=== PATIENT | female | born 1950 | race Caucasian/White ===

== ENCOUNTER 2020-03-07 00:21 | Outpatient (CLI) | payer MEDICARE, SELFPAY ==
--- NOTE | 2020-03-07 07:30 | DI.MAMMO_ITS ---
EXAM: MAMMO SCREENING CLINICAL HISTORY: screening,Z12.39 TECHNIQUE: Mammograms were interpreted according to the usual protocol including computer analysis w [employer] CAD system, tomosynthesis and C-view imaging. COMPARISON: 2010 through 2017 FINDINGS: The breasts are composed of scattered fibroglandular densities, Breast Density category B. No suspicious masses or suspicious microcalcifications are seen. No skin thickening or abnormal axillary lymph nodes are seen. There has been no significant change from prior exams. IMPRESSION: BI-RADS Category 1, yearly screening mammography is recommended. Breast Density Category B, scattered fibroglandular densities.
== END 2020-03-07 00:41 ==
PROVIDERS: PCP Family Medicine; Visit Provider Family Medicine
DX: Z12.31 Encounter for screening mammogram for malignant neoplasm of breast (principal)
CPT/HCPCS: 77063; 77067

== ENCOUNTER 2020-06-10 14:00 | Emergency (ER) | payer MEDICARE, SELFPAY ==
--- NOTE | 2020-06-10 14:02 | W.ED.GENAD ---
Discharge Plan Disposition Patient Disposition: HOME Condition: Good Discharge Details Clinical Impression: Closed fibular fracture Primary Care Provider: Deepti Calderon ED Provider: Rhianna Frank Home Meds and New Rx's Prescriptions: Continued betamethasone, augmented 0.05 % cream 1 applic Topical BID PRN (Reason: rash) Qty: 50 RF: 3 fluticasone propionate 50 mcg/actuation spray,suspension 2 spray NS BID Qty: 3 RF: 5 Shingrix Adjuvant Component-PF Suspension 1 ml IM ONCE Qty: 0.5 RF: 1 naproxen sodium 220 MG tablet 1 tab PO DAILY PRNRF: 0 triamcinolone acetonide 80 GM ointment 5 gm Topical BID PRNQty: 80 RF: 2 albuterol sulfate [ProAir HFA] 8.5 GM HFA aerosol inhaler 1 - 2 puff Inhalation Q4H PRN Qty: 3 RF: 12 gabapentin 300 mg capsule 300 mg PO TID MDD 3 PRN (Reason: neuropathy) Qty: 270 RF: 6 lisinopril-hydrochlorothiazide 20-12.5 mg tablet 1 tab PO DAILY Qty: 90 RF: 4 metoprolol succinate 100 mg tablet extended release 24 hr 200 mg PO DAILY Qty: 180 RF: 4 Discharge Instructions Instructions: Leg Fracture (ED) Additional Instructions: Encourage rest, ice, elevation. Tylenol and/or ibuprofen as needed for discomfort. Please continue with boot until evaluated by orthopedics. Please use crutches to help with ambulation but you may bear weight on the affected extremity. If you develop any new or worsening symptoms please seek care urgently once again. Otherwise, please call orthopedics on Friday to schedule follow-up appointment. Please follow up with your primary care regarding your elevated blood pressure. Please return if headache, shortness of breath, chest pain or other new/worsening symptoms. Referrals: Deepti Calderon MD, [place] [Primary Care Provider] - Pualo Kumar MD [ [facility] STAFF PHYSICIAN] - Medical Decision Making Patient is a pleasant 70-year-old female presenting today with chief complaint of right ankle pain arrival she was working in her garden when she suffered a rotational injury to the right ankle. Indicates the lateral malleolus is area of discomfort. Did not actually fall. No other injury the time of the incident. On exam, patient is resting comfortably. She did have difficulty ambulating from the wheelchair to the stretcher. She has notable swelling over the lateral malleolus which is the same area as discomfort. No pain of the proximal fifth metatarsal. No pain of the proximal fibula. Sensation is intact. Normal capillary refill, 2+ distal pulses. Will obtain x-rays. Patient declines analgesics Reviewed XR, patient has distal fibular fracture. Will fit with boot and have her ambulate wth crutches, weight bearing as tolerated. Encouraged RICE. She will call ortho Friday to schedule f/u appointment. Return precautions discussed. All of her quesitons and concerns were addressed, she is in agreement with this plan. FINDINGS: Bones/joints: There is moderate ankle joint effusion. There is plantar spur. There are enthesopathic changes at the site of insertion of Achilles tendon. There is a horizontal fracture of lateral malleolus below level of ankle mortise joint. Soft tissues: There is marked soft tissue swelling a over lateral malleolus. IMPRESSION: Acute horizontal fracture of tip of lateral malleolus of fibula. There is marked soft tissue swelling over lateral malleolus with associated ankle joint effusion. HPI General Mode of arrival: wheelchair. Date/Time Provider Initiated Documentation: 06/10/20 14:02. Limitations to Documentation: no limitations. Information obtained by: patient and RN notes reviewed. History of Present Illness 70 year old F presents to the emergency department with the chief complaint of right ankle pain, described as mild, with intensity rated at 2 (spikes to an 8 when weight bearing). Quality is described as aching, and is localized to the right and lower extremity. Patient reports no radiation. Patient started experiencing this minute(s) and it has been constant. Immobilization improves symptom(s), Movement worsens symptoms . Patient notes no other symptoms.. Patient did receive the following treatments prior to arrival, none Related Data Home Medications Medication Instructions Recorded Confirmed naproxen sodium 1 tab PO DAILY PRN 12/17/12 06/10/20 triamcinolone acetonide 5 gm TOPICAL BID PRN #80 ml 01/20/17 06/10/20 albuterol sulfate [ProAir HFA] 1 - 2 puff INHALATION Q4H PRN #3 02/12/18 06/10/20 inhaler betamethasone, augmented 0.05 % 1 applic TOPICAL BID PRN #50 gm 07/13/18 06/10/20 topical cream gabapentin 300 mg capsule 300 mg PO TID PRN #270 tab-cap [facility] 05/04/19 06/10/20 3 adjuvant AS01B (PF)vial 1 of 2 1 ml IM ONCE #0.5 ml 11/09/19 06/10/20 fluticasone propionate 50 2 spray NS BID #3 bottle 11/09/19 06/10/20 mcg/actuation nasal spray,suspension lisinopril 20 1 tab PO DAILY #90 tab 03/31/20 06/10/20 mg-hydrochlorothiazide 12.5 mg tablet metoprolol succinate 100 mg 200 mg PO DAILY #180 tab 03/31/20 06/10/20 tablet,extended release 24 hr Previous Rx's Medication Instructions Recorded albuterol sulfate [ProAir HFA] 1 - 2 puff INHALATION Q4H PRN #3 02/12/18 inhaler betamethasone, augmented 0.05 % 1 applic TOPICAL BID PRN #50 gm 07/13/18 topical cream gabapentin 300 mg capsule 300 mg PO TID PRN #270 tab-cap [facility] 05/04/19 3 adjuvant AS01B (PF)vial 1 of 2 1 ml IM ONCE #0.5 ml 11/09/19 fluticasone propionate 50 2 spray NS BID #3 bottle 11/09/19 mcg/actuation nasal spray,suspension lisinopril 20 1 tab PO DAILY #90 tab 03/31/20 mg-hydrochlorothiazide 12.5 mg tablet metoprolol succinate 100 mg 200 mg PO DAILY #180 tab 03/31/20 tablet,extended release 24 hr Allergies Allergy/AdvReac Type Severity Reaction Status Date / Time No Known Drug Allergies Allergy Verified 06/10/20 14:20 Review of Systems Constitutional Constitutional: Reports as per HPI, Denies chills, Denies fever(s), Denies headache(s) and Denies weakness ENT Ears, Nose, Mouth, and Throat: Denies headache(s) Cardiovascular Cardiovascular: Reports as per HPI Respiratory Respiratory: Reports as per HPI and Denies cough Musculoskeletal Musculoskeletal: Reports as per HPI and Denies tingling Integumentary/Breasts Skin/Breast: Reports as per HPI, Denies rash and Denies wounds Neurologic Neurologic: Reports as per HPI, Denies headache(s), Denies tingling, Denies paresthesias and Denies weakness PFS Medical History Carpal tunnel syndrome positive EMG Cervical spondylosis (07/20/09) Chronic low back pain with bilateral sciatica L5 discectomy Diverticulosis (10/13/14) Essential hypertension (12/03/13) Hyperlipidemia Hypertrophy of breast S/P breast reduction Non-alcoholic fatty liver disease Polyp of colon 08/21/04 Tubular adenoma in rectum; 04/30 Colonoscopy: Diverticulosis, BUT NO POLYPS Tubular adenoma of colon (10/13/14) Surgical History H/O bilateral breast reduction surgery Hx of lumbar discectomy L5 Open Carpal Tunnel release (~2006) PROCEDURES EXC/DEST INTVRT DISC NOS; L5 Reduction mammoplasty S/P carpal tunnel release 09/22/06 Family History (Updated 11/10/19 @ 08:56 by Keny Rodriguez) Mother , CVA at age 83. Essential hypertension Hyperlipidemia Stroke Asthma Father , age 84 Essential hypertension Heart disease Hyperlipidemia Sister Essential hypertension Hyperlipidemia Asthma Maternal Grandfather No problems noted. Paternal Grandfather Heart disease Myocardial infarction Maternal Grandmother Lung cancer Paternal Grandmother Diabetes LATE ONSET Essential hypertension Heart disease Ovarian cancer STRONG FAMILY HISTORY Essential hypertension Arthritis Sister Essential hypertension Depression Hyperlipidemia Son No problems noted. Son No problems noted. Social History Smoking/Tobacco Use Status: Former Tobacco Use Second Hand Exposure: Yes Alcohol Intake: current Alcohol Intake frequency: 0-2 drinks per day Alcohol type: hard liquor Drug use: Occasionally Substance use type: marijuana Caregiver/Support person: No Household members: family Housing: house Communication Needs: None Do you need help understanding health information?: Rarely Pets and animals: Yes Pets and animals: cat(s) and dog(s) Sexually active: No Do you think of yourself as: Asexual Current gender identity: female What is your relationship status?: living with partner How often do you talk on the phone with friends or family?: three or more times per week How often do you get together with friends or relatives?: once per week How often do you attend congregational or taoist services?: 1-3 times per year Do you belong to any clubs or organized social groups?: no Panel score (0-1 are the most socially isolated patients): 2 What type of physical activity do you participate in: decline to answer Duration: decline to answer Frequency: decline to answer Elaina/Shinto: None Special elaina needs: No Seatbelt use: always 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 Exam Const General: cooperative, healthy appearing, comfortable, no acute distress, well developed and well groomed Nutritional Appearance: average body habitus and well nourished Orientation: alert and awake Resp Effort & Inspection: normal respiratory effort, able to speak in complete sentences and no respiratory distress Cardio Rate: regular rate Rhythm: regular rhythm Skin General skin exam: no rashes or lesions noted Lesions: no lesions Rashes: no rashes Trauma: no lacerations or abrasions Neuro General: patient alert and patient awake Cognition: normal cognition Speech: speech normal Gait: antalgic Motor: muscle tone normal throughout Sensory Exam: no sensory deficits noted Extrem Right lower extremity: normal capillary refill, knee Details: normal to inspection (no pain over proximal fibula), lower leg Details: normal to inspection and no edema; no tenderness, no localized swelling, no palpable cords, no crepitus and no deformity, ankle Details: tenderness Location: of the lateral malleolus, swelling Details: laterally, no edema and abnormal ROM; no unusual warmth, no abrasions, no lacerations, no ecchymosis, no crepitus and achilles tendon exam normal and foot Details: normal capillary refill, normal to inspection, toes with normal ROM, no edema, vascular exam Details: dorsalis pedis pulse present and normal capillary refill and motor-sensory exam Details: light-touch normal; no tenderness (no pain over proximal 5th metatarsal), no unusual warmth, no ecchymosis and no crepitus; abnormal to inspection (swelling lateral right ankle) Psych Appearance: grossly normal and well kempt Mental Status: mental status grossly normal Speech and Movement: speech and movement normal
[2020-06-10 14:18] VITALS: BP 214/74; PULSE 72; RESP 16; TEMP 36.6; O2SAT 96
--- NOTE | 2020-06-10 14:26 | DI.RAD_ITS ---
EXAM: XR ANKLE RT COMPLETE CLINICAL HISTORY: internal rotationl injury, pain over lateral mal. TECHNIQUE: 2D digital imaging was performed. COMPARISON: No exams were available for comparison FINDINGS: BONES: There is a nondisplaced transverse fracture through the distal aspect of the lateral malleolus . No bony destructive lesion is seen. There is a large enthesophyte at the Achilles insertion site. There is a large calcaneal spur. JOINTS: The ankle mortise is normally aligned. SOFT TISSUE: There is marked soft tissue swelling about the ankle particularly laterally. IMPRESSION: Nondisplaced lateral malleolar fracture. Marked soft tissue swelling about the ankle laterally. DATA REPOSITORY: RADIATION DOSE DELIVERED:
--- NOTE | 2020-06-10 14:41 | DI.VRAD_ITS ---
PROCEDURE INFORMATION: Exam: XR Right Ankle Exam date and time: 06/10/2020 2:21 PM Age: 70 years old Clinical indication: Other: Internal rotation injury, pain over lateral mal TECHNIQUE: Imaging protocol: XR Right ankle. Views: 3 or more views. COMPARISON: No relevant prior studies available. FINDINGS: Bones/joints: There is moderate ankle joint effusion. There is plantar spur. There are enthesopathic changes at the site of insertion of Achilles tendon. There is a horizontal fracture of lateral malleolus below level of ankle mortise joint. Soft tissues: There is marked soft tissue swelling a over lateral malleolus. IMPRESSION: Acute horizontal fracture of tip of lateral malleolus of fibula. There is marked soft tissue swelling over lateral malleolus with associated ankle joint effusion. Dictated and Authenticated by: Miguel Angel Fung MD. Ordering:JIMI Moctezuma MD
[2020-06-10 14:42] VITALS: BP 200/70
== END 2020-06-10 14:47 | disposition home or self-care (01) ==
PROVIDERS: Emergency Provider Physician Assistant; PCP Family Medicine
DX: S82.61XA Displaced fracture of lateral malleolus of right fibula, initial encounter for closed fracture (principal); X50.9XXA Other and unspecified overexertion or strenuous movements or postures, initial encounter
CPT/HCPCS: 27786; 73610; E0114; L4361

== ENCOUNTER 2020-06-26 09:30 | Outpatient (CLI) | payer MEDICARE, SELFPAY | END 2020-06-26 09:50 | PROVIDERS: PCP Family Medicine; Visit Provider Physician Assistant Surgical | DX: S82.401A Unspecified fracture of shaft of right fibula, initial encounter for closed fracture (principal); X50.9XXA Other and unspecified overexertion or strenuous movements or postures, initial encounter; I10 Essential (primary) hypertension | CPT/HCPCS: 99214 ==

== ENCOUNTER 2020-11-01 22:48 | Outpatient (REF) | payer MEDICARE, SELFPAY | END 2020-11-01 22:49 | disposition home or self-care (01) | LOC: NCHCN 22:48 | PROVIDERS: PCP Family Medicine; Visit Provider Nurse Practitioner Family | DX: N39.0 Urinary tract infection, site not specified (principal) | CPT/HCPCS: 87077; 87086; 87186 ==

== ENCOUNTER 2021-02-13 02:19 | Outpatient (CLI) | payer MEDICARE, SELFPAY ==
--- NOTE | 2021-02-13 14:52 | DI.RAD_ITS ---
Exam(s) XR CERVICAL SPINE COMP 4-5V EXAM: XR CERVICAL SPINE COMP 4-5V CLINICAL HISTORY: neck pain,M47.812,CERVICAL SPONDYLOSIS. TECHNIQUE: 2D digital imaging was performed. COMPARISON: No exams were available for comparison FINDINGS: There are degenerative changes at the anterior arch of C1 with the dens. The C2-3 and C3-4 disc spac es are well maintained. There are facet degenerative changes at these levels. There is mild narrowi ng of the C4-5 disc space. There are endplate osteophytes projecting mainly anteriorly. Similar fin dings are seen at C5-6. Moderate to severe disc space narrowing and endplate osteophyte formation is seen at C6-7. Facet degenerative changes are noted at these levels. Neural foraminal encroachment is seen on the left at C3-4 through C5-6. The alignment appears normal. The airway appears intact. IMPRESSION: Degenerative disc changes and facet degenerative changes causing left neural foraminal encroachment. DATA REPOSITORY: RADIATION DOSE DELIVERED:
== END 2021-02-13 02:39 ==
PROVIDERS: PCP Family Medicine; Visit Provider Family Medicine
DX: M54.2 Cervicalgia (principal); M47.812 Spondylosis without myelopathy or radiculopathy, cervical region; M50.321 Other cervical disc degeneration at C4-C5 level; M50.323 Other cervical disc degeneration at C6-C7 level
CPT/HCPCS: 72050

== ENCOUNTER 2021-09-24 09:53 | Outpatient (CLI) | payer MEDICARE, SELFPAY ==
--- NOTE | 2021-09-24 09:30 | DI.US_ITS ---
Exam(s) US LOWER EXTREMITY VENOUS RT EXAM: US LOWER EXTREMITY VENOUS RT CLINICAL HISTORY: new onset right leg pain /edema, M79.604, r/o DVT. TECHNIQUE: Lower extremity venous ultrasound performed using grayscale, color-flow, and spectral Do ppler analysis. COMPARISON: No exams were available for comparison FINDINGS: The common femoral, femoral and popliteal veins demonstrate thrombus throughout.The posterior tibial veins also show thrombus.. The proximal saphenous vein shows thrombus. No hematoma or Wick's cyst is seen. IMPRESSION: Extensive deep venous thrombosis from the common femoral vein through calf veins. DATA REPOSITORY:
== END 2021-09-24 10:13 ==
PROVIDERS: PCP Family Medicine; Visit Provider Family Medicine
DX: M79.604 Pain in right leg (principal); R60.0 Localized edema; I82.411 Acute embolism and thrombosis of right femoral vein
CPT/HCPCS: 93971

== ENCOUNTER 2021-09-25 01:16 | Outpatient (CLI) | payer MEDICARE, SELFPAY ==
--- NOTE | 2021-09-25 08:02 | DI.CT_ITS ---
Exam(s) CT CHEST PE CTA EXAM: CT CHEST PE CTA CLINICAL HISTORY: right dvt, recent chest pain on right,suspect pe,r07.9. TECHNIQUE: Imaging Protocol: Axial CT angiography was performed with multi-slice acquisition and mu lti-planar and/or 3D reconstructions. CONTRAST MATERIAL: Intravenous: Omnipaque 350 Contrast volume:75 mL COMPARISON: No exams were available for comparison FINDINGS: Tracheobronchial tree: Patent where visualized. Pulmonary parenchyma: There is a 1.5 x 1.3 cm nodule in the right lower lobe. There is pleural thick ening or peripheral infiltrate seen in the right lower lobe laterally. No architectural distortion. Pulmonary Arteries: There is a filling defect seen in a branch of the pulmonary artery in the right l ower lobe consistent with the embolus. (Series 5 images 285 through 333). Mediastinum and Radha: No dominant adenopathy or fluid collection. The esophagus is unremarkable. Visualized thyroid gland: There is a 1.7 x 1.5 cm nodule in the inferior aspect of the left thyroid g land. Nonemergent thyroid ultrasound is recommended for further evaluation. Pleura: Please see above. No pleural effusion is seen. There is no pneumothorax. Heart: The heart is not dilated. No coronary artery calcifications are seen. No pericardial effusion. Aorta: Thoracic aorta non-dilated. No evidence of dissection. Atherosclerosis. Upper abdomen: Unremarkable. Soft tissues: Unremarkable. Bones: Within normal limits for the patient's age. IMPRESSION: 1. Pulmonary embolus in a branch of the pulmonary artery to the right lower lobe. 2. Rounded opacity in the right lower lobe. Differential considerations include neoplasm, rounded at electasis or pneumonia or infarct. 3. Peripheral opacity in the lateral aspect of the right lower lobe. This may represent atelectasis or pneumonia. 4. 1.7 x 1.5 cm nodule in the left thyroid gland. Nonemergent thyroid ultrasound is recommended. RADIATION DOSE DELIVERED: 346.15mGy.cm Total DLP DATA REPOSITORY: All CT scans at this facility are submitted to the National Radiology Data Registry (NRDR) Dose Index Registry (DIR) with the [employer] (A[employer]). RADIATION OPTIMIZATION: All CT scans at this facility use at least one of these dose optimization te chniques: automated exposure control; mA and/or kV adjustment per patient size (includes targeted exa ms where dose is matched to clinical indication); or iterative reconstruction.
[2021-09-25 13:10] LABS: HCT 38.7 % (36.0-46.0); HGB 12.8 g/dL (11.2-15.7); MCH 33.7 pg (27.0-33.0); MCHC 33.1 % (32.0-36.0); MCV 101.8 fL (80-95); MPV 9.9 fL (8.0-11.0); Platelet Count 235 10^3/uL (130-400); RDW-SD 45.1 fL; WBC 9.06 10^3/uL (4.4-10.8)
[2021-09-25 13:28] LABS: ALT 24 U/L (14-59); AST 21 U/L (15-37); Albumin 3.7 g/dL (3.4-5.0); Alkaline Phosphatase 81 U/L (46-116); Anion Gap 8.3 mmol/L (3-11); BUN 32 mg/dL (7-18); Bilirubin, Total 0.5 mg/dL (0.2-1.0); CO2 28.7 mmol/L (21.0-32.0); CREATININE 1.2 mg/dL (0.55-1.02); Calcium 9.5 mg/dL (8.5-10.1); Chloride 101 mmol/L (98-107); Estimated GFR 44.16 (mL/min/1.73m2); Glucose 164 mg/dL (74-106); Potassium 4.1 mmol/L (3.5-5.1); Sodium 138 mmol/L (136-145); Total Protein 7.4 g/dL (6.4-8.2)
[2021-09-25] MEDS: Omnipaque 350 MG/ML 100 ML BTL IJ (13:59)
[2021-09-25 14:03] LABS: Calculated LDL 154 mg/dL (<100); Cholesterol 223 mg/dL (<200); HDL Cholesterol 38 mg/dL (40-60); Triglyceride 157 mg/dL (<150)
== END 2021-09-25 01:36 ==
PROVIDERS: PCP Family Medicine; Visit Provider Family Medicine
DX: I26.99 Other pulmonary embolism without acute cor pulmonale (principal); M79.604 Pain in right leg; I82.411 Acute embolism and thrombosis of right femoral vein; R07.9 Chest pain, unspecified; I10 Essential (primary) hypertension; E78.5 Hyperlipidemia, unspecified; J98.4 Other disorders of lung; E04.1 Nontoxic single thyroid nodule
CPT/HCPCS: 71275; 80053; 80061; 85027; 82565; J3490

== ENCOUNTER 2021-09-25 16:14 | Emergency (ER) | payer MEDICARE, SELFPAY ==
--- NOTE | 2021-09-25 16:15 | RT.EKG_ITS ---
APPROVED REPORT Exam: Resting ECG Reason for Exam: BLOOD CLOTS Patient Location: E HR:67 bpm ECG Measurements Heart Rate 67 AXIS PA 217 P 44 QRSd 77 QRS 44 QT 405 T 54 QTc 427 Conclusion Sinus rhythm...normal P axis, V-rate 60- 99 Borderline prolonged PA interval...PA >212, V-rate 50- 90 Nonspecific T abnormalities, anterior leads...T <-0.10mV, V2-V4 Physician: no stemi, inverted t waves in V1 and V2
[2021-09-25 16:22] VITALS: BP 144/84; PULSE 72; RESP 14; TEMP 36.6; O2SAT 100
--- NOTE | 2021-09-25 16:50 | W.ED.GENAD ---
Discharge Plan Disposition Patient Disposition: HOME Condition: Good Discharge Details Clinical Impression: Pulmonary embolism Primary Care Provider: Deepti Calderon ED Provider: Tera Ruiz Home Meds and New Rx's Prescriptions: Continued albuterol sulfate [ProAir HFA] 90 mcg/actuation HFA aerosol inhaler 1 - 2 puff Inhalation Q4H PRN Qty: 3 RF: 12 celecoxib 200 mg capsule 200 mg PO DAILY PRN (Reason: pain) Qty: 30 RF: 5 fluticasone propionate 50 mcg/actuation spray,suspension 2 spray NS BID Qty: 3 RF: 5 lisinopril-hydrochlorothiazide 20-25 mg tablet 1 tab PO DAILY Qty: 90 RF: 4 clobetasol 0.05 % ointment 1 applic topical DAILY Qty: 60 RF: 5 triamcinolone acetonide 0.1 % cream 1 applic topical BID Qty: 80 RF: 0 gabapentin 300 mg capsule 300 mg PO TID MDD 3 PRN (Reason: neuropathy) Qty: 270 RF: 6 metoprolol succinate 100 mg tablet extended release 24 hr 200 mg PO DAILY Qty: 180 RF: 4 Discharge Instructions Instructions: Rivaroxaban (By mouth), Pulmonary Embolism (ED) Additional Instructions: At this time your bedside echo shows a stable heart, no signs of severe heart strain. We have given you your first dose of Xarelto here, and 4 few pills to go home with. The prescription is to take 15 Mg (1 tab) every 12 hours. The prescription that you have at the pharmacy should be available tomorrow or the next day. Please fill this immediately. Please follow-up closely with Dr. Calderon at your scheduled appointment on . If you notice any worsening of your symptoms, or any new symptoms such as vomiting, diarrhea, fever, chills, shortness of breath, chest pain, numbness, weakness, or fainting , please return immediately to the emergency department for reevaluation. Please follow up with your primary care provider as soon as possible for reassessment and reevaluation. As always, it was a pleasure participating in your medical care today. Referrals: Deepti Calderon MD, [place] [Primary Care Provider] - Discharge Data Discharge Date/Time-TO BE ENTERED AT DEPARTURE: 09/25/21 17:06 Medical Decision Making This is a 62-year-old female with a past medical history of COVID-19 after vaccination, coronary artery disease with 3 stents, diabetes, asthma/COPD, who presents today for weakness palpitations mild shortness of breath. Patient states that about 30 minutes prior to arrival she developed the symptoms, she denies any new cough or tearing or ripping chest pain. She denies any heavy pressure in her chest. She states that these current symptoms feel different than her previous angina. No other complaints at this time. No other modifying factors. She denies history of blood clot. Physical exam is notably unremarkable, patient has no hypoxemia, tachypnea, or respiratory distress. No peripheral edema. Bedside ultrasound was performed and shows no evidence of significant right heart strain. EKG did demonstrate inverted T waves in V1 and V2, however was otherwise unremarkable. CT scan written review of scan shows no evidence of significant clot burden. Only a single strand the long clot is noted. At this time patient feels well. No indication for further evaluation. We are able to get the patient Xarelto here, we gave her a pulmonary embolism dose of 15 mg, as well as 4 additional pills to go home with while her prescription is being filled. The pharmacy does state that they will have the Xarelto sometime tomorrow. We contacted discussed the case with the patient's provider Dr. Calderon, and she agrees with this plan. She will be following up closely with the patient for continued reassessment and potential outpatient reevaluation for echo. Discussed red flags which to return. At this time patient shows no signs of heart failure requiring inpatient management. I have extensively reviewed the treatment plan and discharge instructions with the patient. I have addressed all patient concerns at this time. The patient was made aware of what symptoms to monitor for that would warrant a return to the emergency department. Discussed the plan with the patient, they demonstrate verbal understanding and agreement with our assessment and plan at this time. The documentation in this chart was dictated using [employer] dictation software. Please excuse any dictation errors. HPI General Date/Time Provider Initiated Documentation: 09/25/21 16:26. HPI Narrative: This is a very pleasant 71-year-old female who presents for medication management on an acute setting. Patient was recently diagnosed with a DVT and pulmonary embolism, these were notable and done on outpatient studies, and her primary care provider has aggressively been trying to get the patient appropriate anticoagulation therapy on an outpatient basis. Unfortunately none of the pharmacies have Eliquis that the patient is able to afford, additionally none of the pharmacies actively today had any Xarelto. Out of concern for worsening clots, and potential propagation is recommended that the patient come to the ED for evaluation as well as expediting anticoagulation administration. Patient has no current complaint of chest pain shortness of breath or other abnormality. Related Data Home Medications Medication Instructions Recorded Confirmed fluticasone propionate 50 2 spray NS BID #3 bottle 11/09/19 09/25/21 mcg/actuation nasal spray,suspension triamcinolone acetonide 0.1 % 1 applic TOPICAL BID #80 g 06/19/20 09/25/21 topical cream gabapentin 300 mg capsule 300 mg PO TID PRN #270 tab-cap MDD 08/24/20 09/25/21 3 clobetasol 0.05 % topical ointment 1 applic TOPICAL DAILY #60 g 11/13/20 09/25/21 lisinopril 20 1 tab PO DAILY #90 tab 11/13/20 09/25/21 mg-hydrochlorothiazide 25 mg tablet metoprolol succinate 100 mg 200 mg PO DAILY #180 tab 05/17/21 09/25/21 tablet,extended release 24 hr albuterol sulfate 90 mcg/actuation 1 - 2 puff INHALATION Q4H PRN #3 09/24/21 09/25/21 aerosol inhaler inhaler celecoxib 200 mg capsule 200 mg PO DAILY PRN #30 cap 09/24/21 09/25/21 Previous Rx's Medication Instructions Recorded fluticasone propionate 50 2 spray NS BID #3 bottle 11/09/19 mcg/actuation nasal spray,suspension triamcinolone acetonide 0.1 % 1 applic TOPICAL BID #80 g 06/19/20 topical cream gabapentin 300 mg capsule 300 mg PO TID PRN #270 tab-cap MDD 08/24/20 3 clobetasol 0.05 % topical ointment 1 applic TOPICAL DAILY #60 g 11/13/20 lisinopril 20 1 tab PO DAILY #90 tab 11/13/20 mg-hydrochlorothiazide 25 mg tablet metoprolol succinate 100 mg 200 mg PO DAILY #180 tab 05/17/21 tablet,extended release 24 hr albuterol sulfate 90 mcg/actuation 1 - 2 puff INHALATION Q4H PRN #3 09/24/21 aerosol inhaler inhaler celecoxib 200 mg capsule 200 mg PO DAILY PRN #30 cap 09/24/21 Allergies Allergy/AdvReac Type Severity Reaction Status Date / Time No Known Drug Allergies Allergy Verified 09/25/21 16:26 General Stated Complaint: Vascular JEFF: 4 Review of Systems All systems reviewed & are unremarkable except as noted in HPI and below PFSH All Active Problems DVT (deep venous thrombosis) (Chronic) 09/2021, right on Eliquis, at least 6 month course Pulmonary embolism (Chronic) 08/2021- assoc with right leg DVT, on Eliquis-at least 6 month course DNR (do not resuscitate) (Acute) Physician orders for life-sustaining treatment (POLST) form indicates patient wish for pv-[id number] status (Acute) Vaginal atrophy (Acute) Tubular adenoma of colon (Chronic 10/13/14) Non-alcoholic fatty liver disease (Chronic) Joint pain (Chronic 06/16/12) Hyperlipidemia (Chronic) Essential hypertension (Chronic 12/03/13) Diverticulosis (Chronic 10/13/14) 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 Essential hypertension Hyperlipidemia Stroke Asthma Father , age 84 Essential hypertension Heart disease Hyperlipidemia Sister Essential hypertension Hyperlipidemia Asthma Maternal Grandfather No problems noted. Paternal Grandfather Heart disease Myocardial infarction Maternal Grandmother Lung cancer Paternal Grandmother Diabetes LATE ONSET Essential hypertension Heart disease Ovarian cancer STRONG FAMILY HISTORY Essential hypertension Arthritis Sister Essential hypertension Depression Hyperlipidemia Son No problems noted. Son No problems noted. Social History Smoking/Tobacco Use Status: Former Tobacco Use Tobacco: How many years used: 25 Second Hand Exposure: Yes Smoking risk assessment performed?: Yes Alcohol Intake: current Alcohol Intake frequency: 0-2 drinks per day Alcohol type: hard liquor Drug use: Occasionally Substance use type: marijuana Caregiver/Support person: No Household members: family Housing: house Communication Needs: None Do you need help understanding health information?: Rarely Pets and animals: Yes Pets and animals: cat(s) and dog(s) Sexually active: No Do you think of yourself as: Asexual Current gender identity: female What is your relationship status?: living with partner How often do you talk on the phone with friends or family?: three or more times per week How often do you get together with friends or relatives?: once per week How often do you attend christian or congregational services?: 1-3 times per year Do you belong to any clubs or organized social groups?: no Panel score (0-1 are the most socially isolated patients): 2 What type of physical activity do you participate in: decline to answer Duration: decline to answer Frequency: decline to answer Elaina/Scientologist: None Special elaina needs: No Seatbelt use: always Drive intox or ride w/intox 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 3.ENT: Atraumatic external nose and ears. Moist MM. Neck: Symmetric, trachea midline, No thyromegaly. 4.CVS: +S1/S2, No murmurs or gallops. Peripheral pulses 2+ and equal in all extremities. Brisk capillary refill in all extremities. 5.RESP: Unlabored respiratory effort. Clear to auscultation bilaterally. No wheezes rales or rhonchi 6.GI: Soft, Nontender/Nondistended, No hepatosplenomegaly. No guarding or rebound. 7.MSK: Normocephalic/Atraumatic, Extremities w/o deformity or ttp No cyanosis or clubbing, Normal movement of all extremities 8.Skin: Warm, Dry. No rashes or lesions. 9.Neuro: kayak maker II-XII grossly intact. Sensation grossly intact, no focal neurologic deficits. 10.Psych: (AAO) x3. Appropriate mood and affect Course Vital Signs Vital signs: Vital Signs Temperature 36.6 C 09/25/21 16:22 Pulse 72 09/25/21 16:22 Respiratory Rate 14 09/25/21 16:22 Blood Pressure 144/84 H 09/25/21 16:22 Pulse Oximetry 100 09/25/21 16:22 Temperature 36.6 C 09/25/21 16:22 Temperature Source Temporal Artery Scan 09/25/21 16:22 Pulse 72 09/25/21 16:22 Respiratory Rate 14 09/25/21 16:22 Respiratory Effort Non-Labored 09/25/21 16:28 Respiratory Depth Normal 09/25/21 16:28 Respiratory Pattern Normal 09/25/21 16:28 Blood Pressure 144/84 H 09/25/21 16:22 Blood Pressure Position Sitting 09/25/21 16:22 Pulse Oximetry 100 09/25/21 16:22 Oxygen Delivery Method Room Air 09/25/21 16:22 Oxygen Flow Rate 0 09/25/21 16:22 Pain Level 6 09/25/21 16:22 Comment 09/25/21 16:22 PAWSS Have you Been Recently Intoxicated or Drunk Within the Last 30 days?: No Have you Ever Experienced Previous Episodes of Alcohol Withdrawal?: No Have you ever Experienced Withdrawal Seizures?: No Have you ever Experienced Delirium Tremens(DT)s?: No Have you ever undergone Alcohol Rehabilitation Treatment (i.e, inpt ot outpatient treatment programs)?: No Have you ever Experienced Blackouts?: No Have you ever Combined Alcohol with other Downers within the last 90 days?: No Have you ever Combined Alcohol with any other Substance of Abuse during the last 90 days?: No Positive Blood Alcohol level on Presentation? [PCS.BAL]: No Evidence of Increased Autonomic Activity (i.e. HR>120, tremor, sweating, agitation, nausea)?: No Result: 0
[2021-09-25 16:57] VITALS: BP 106/64; PULSE 69; RESP 15; TEMP 36.9; O2SAT 97
[2021-09-25] MEDS: Rivaroxaban 15 MG TABLET PO (17:01)
[2021-09-25] MEDS: Rivaroxaban 15 MG TABLET 60 MG PO (17:01)
[2021-09-25 17:08] VITALS: BP 106/64; PULSE 69; RESP 15; TEMP 36.9; O2SAT 97
== END 2021-09-25 17:06 | disposition home or self-care (01) ==
LOC: ER 16:53
PROVIDERS: Emergency Provider Student in an Organized Health Care Education/Training Program; PCP Family Medicine
DX: I26.99 Other pulmonary embolism without acute cor pulmonale (principal); Z86.16 Personal history of COVID-19; R00.2 Palpitations
CPT/HCPCS: 71275; 80053; 80061; 85027; 93005; 99284; 93010; 99283; J3490

== ENCOUNTER 2021-09-27 13:35 | Outpatient (REF) | payer MEDICARE, SELFPAY ==
[2021-09-28 12:31] LABS: COVID-19 RT-PCR UVMMC Result Negative (Negative)
== END 2021-09-27 13:36 | disposition home or self-care (01) ==
LOC: LBN 13:35
PROVIDERS: PCP Family Medicine; Visit Provider Family Medicine
DX: Z20.822 Contact with and (suspected) exposure to COVID-19 (principal)
CPT/HCPCS: U0003; U0005

== ENCOUNTER → 2022-01-25 01:41 | Outpatient (CLI) | payer MEDICARE, SELFPAY ==
--- NOTE | 2022-01-25 06:45 | DI.CT_ITS ---
Exam(s) CT CHEST WO EXAM: CT CHEST WO CLINICAL HISTORY: f/u pulmonary nodule,R91.1. TECHNIQUE: Multi planar reconstructions were performed. CONTRAST MATERIAL: None COMPARISON: CT CT CHEST PE CTA from 09/25/2021 FINDINGS: CHEST: Noninfused chest CT scan was performed and compared to the prior contrast infused chest CT ang iography study of 09/25/2021. That study revealed a pulmonary embolus in the right lower lobe and a 1.5 x 1.3 centimeter nodule in the right lower lobe.. LUNGS: The previously described nodular infiltrate in the posterior basal segment of the right lower lobe has decreased in size and there has also been some decrease in size in pleural based infiltrate laterally in the anterior basal segment of the right lower lobe. There are no new focal right lung f indings. There are no significant focal left lung findings. There are no pleural effusions on eithe r side. No focal findings in the trachea and mainstem bronchi. No bronchiectasis. MEDIASTINUM: There is no obvious hilar nor mediastinal adenopathy. Visualized thyroid again reveals a nodule which occupies part of the left lobe and left side of the isthmus. No obvious axillary adeno maria c CARDIAC: Heart size is normal. There is no pericardial effusion.Caliber of the thoracic aorta is wit hin normal limits. VISUALIZED UPPER ABDOMEN: OSSEOUS: No significant osseous lesions.. IMPRESSION: 1. There has been improvement in the previously described right lower lobe findings. The previously described 1.5 x 1.3 cm nodule in the right lower lobe and pleural thickening in the peripheral aspect of right lower lobe both significantly decreased although not yet completely resolved. Nevertheless , fact that these have decreased in size imply that there are most probably not neoplastic. 2. There are no new focal pulmonary findings and there are no pleural effusions nor obvious intrathor acic adenopathy evident on this noninfused study. 3. The prior contrast infused CTA study revealed a pulmonary embolus in a branch of the right lower l obe pulmonary artery. This cannot be assessed on this noninfused study. Nevertheless, the previousl y described finding in the posterior basal segment of the right lower lobe has significantly improved and therefore if it was indeed an area of pulmonary infarction then it has improved. RADIATION DOSE DELIVERED: 484.11mGy.cm Total DLP DATA REPOSITORY: All CT scans at this facility are submitted to the National Radiology Data Registry (NRDR) Dose Index Registry (DIR) with the [employer] (ACR). RADIATION OPTIMIZATION: All CT scans at this facility use at least one of these dose optimization te chniques: automated exposure control; mA and/or kV adjustment per patient size (includes targeted exa ms where dose is matched to clinical indication); or iterative reconstruction.
--- NOTE | 2022-01-25 07:00 | DI.US_ITS ---
Exam(s) US THYROID EXAM: US THYROID CLINICAL HISTORY: thyroid nodule,E04.1. TECHNIQUE: Ultrasound thyroid performed using standard protocol. COMPARISON: US US LOWER EXTREMITY VENOUS RT from 09/24/[address] CHEST WO from 01/25/2022 FINDINGS: Both thyroid lobes exhibit normal size. In the right thyroid lobe there are few small benign colloid cysts but no significant nodules. In the left thyroid lobe there is a nodule which also involves the adjacent left side of the isthmus, this corresponding to what was incidentally seen on the recent chest CT scan. This nodule is described below. There are no other thyroid nodules evident and there is no adenopathy . LEFT THYROID LOBE NODULE: This nodule is at the junction of the inferior left lobe and isthmus. This nodule measures 2.1 cm wide by 1.4 cm AP by 1.8 cm craniocaudal. This nodule exhibits mixed solid-cystic composition-1 point Echogenicity of this nodule is isoechoic-1 point In the transverse plane this shape of this nodule is wider than taller-0 points Nodule margins are slightly lobulated-2 points This nodule appears to contain punctate echogenic foci-3 points TOTAL POINTS for this nodule=7..... Therefore TR 5 IMPRESSION: There is a 2.1 x 1.4 x 1.8 cm nodule which occupies part of the left thyroid lobe as well as left jesse e of the isthmus, as described above. This nodule is A SUSPICIOUS TIRADS 5 NODULE. It measures over 1 cm length and therefore requires ultrasound-guided FNA. DATA REPOSITORY:
== END ==
PROVIDERS: PCP Family Medicine; Visit Provider Family Medicine
DX: E04.1 Nontoxic single thyroid nodule (principal); R91.1 Solitary pulmonary nodule; E07.89 Other specified disorders of thyroid; J98.4 Other disorders of lung
CPT/HCPCS: 71250; 76536

== ENCOUNTER → 2022-05-13 03:03 | Outpatient (CLI) | payer MEDICARE, SELFPAY ==
--- NOTE | 2022-05-13 07:15 | DI.US_ITS ---
Exam(s) US NEEDLE LOCAL OTHER WO RAD EXAM: Left TR 5 thyroid nodule,e04.1, ultrasound guided biopsy COMPARISON: No exams were available for comparison TECHNIQUE: Ultrasound performed using standard protocol. FINDINGS: Sonography was provided for Dr. Carrillo during the performance of a thyroid nodule biopsy. Please re guerrero to the procedure report for complete details. DATA REPOSITORY:
--- NOTE | 2022-05-13 12:15 | PAPNONF_PTH ---
PATIENT: Sharri Lynn LOC: [facility] U#:[id number] AGE/SX: 75/F ROOM: RE05/13/[address]: Kong Carrillo MD : 1950 BED: DIS: SPEC #: [id number] RECD: 05/13/22 13:09 STATUS: SABINONicholas GUTIERREZ #: [id number] DONTE: 05/13/22 12:[address]: Kong Carrillo DEPT: [facility] Cytology RECD BY: Irina Rojas ENTERED: 05/13/22 13:09 SP TYPE: DAVID BURNETT DR: Deepti Calderon MD, DC Tissues: 1 - BODY FLUID CYTO-FINE NEEDLE ASPIRATE-[facility] Procedures: BODY FLUID CYTO-FINE NEEDLE ASPIRATE[facility] Comments: [id number] (PATH FNA CONSULT)
--- NOTE | 2022-05-13 12:47 | W.PROCNOTE ---
Procedure Note Date of procedure: 05/13/22 Procedure: Ultrasound guided FNA, left thyroid nodule, pathology present Surgeon/Proceduralist/Physician: Kong Carrillo Procedure Diagnosis: TR 5 left thyroid nodule-incidentally found Procedure Indications: Patient with the above problems. Options were explained the patient regarding further management. She elected undergo the above procedure. She discontinued her Xarelto 3 days ago. She notes no new symptoms. She notes no new lumps or bumps. She denies any change in her health. She notes no other changes in medications. Procedure Description: The patient was positioned in a supine position with her neck extended. The thyroid nodule was identified with ultrasound. The patient was then prepped and draped in appropriate fashion and 1% lidocaine with 1/100,000 epinephrine was infiltrated into the skin and subcutaneous tissues over the nodule. Using the ultrasound guidance system, the 25-gauge needle was carefully introduced into the nodule and FNA was obtained. This was handed off to pathology who felt that there was good cellular adequacy with follicular and Hurthle cells with no microfollicles. 2 further passes were done in case it was deemed necessary to send Afirma testing. Bleeding was minimal and self-limited. The patient tolerated procedure well. Sterile dressing was applied after ensuring adequate hemostasis. She will remove the bandage in an hour. She will not replace this. She will call with any problems or concerns. She may resume her Xarelto tonight. She will call if she does not hear from me within 1 week with regard to FNA results. Her vital signs remained stable. She was able to ambulate afterwards without difficulty.
== END ==
PROVIDERS: PCP Family Medicine; Visit Provider Otolaryngology
DX: E04.1 Nontoxic single thyroid nodule (principal)
CPT/HCPCS: 76942; 88104

== ENCOUNTER 2022-09-27 00:17 | Outpatient (CLI) | payer MEDICARE, SELFPAY ==
--- NOTE | 2022-09-27 13:40 | DI.MRI_ITS ---
Exam(s) MR CERVICAL SPINE WO EXAM: MR CERVICAL SPINE WO CLINICAL HISTORY: neck pain and arm pain,CERVICAL SPONDYLOSIS,RADICULOPATHY C 6,M47.812, TECHNIQUE: Multiplanar multisequence MRI of the cervical spine was performed without intravenous con trast. COMPARISON: CR XR CERVICAL SPINE COMP 4-5V from 02/13/2021 FINDINGS: BONES: Vertebral body heights are maintained. Alignment is normal. Bone marrow signal intensity is wi thin normal limits. CERVICAL CORD: Craniovertebral junction is unremarkable. The cervical cord is normal size and signal intensity. SOFT TISSUES: Unremarkable. C2-3: No disc herniation or bulge is identified. Prominent facet osteophytes cause severe left vega inal encroachment. No significant central canal stenosis C3-4: Mild disc bulging prominent facet osteophytes cause bilateral neural foraminal narrowing, left greater than right.. No significant central canal stenosis C4-5: No disc herniation or bulge is identified. No evidence of neural foraminal narrowing. No signif icant central canal stenosis C5-6: Moderate loss of disc height prominent circumferentially projecting osteophytes cause bilateral neural foraminal narrowing, left greater than right. No significant central canal stenosis C6-7: Broad-based endplate osteophytes. No evidence of neural foraminal narrowing. No significant joann tral canal stenosis C7-T1: No disc herniation or bulge is identified. No evidence of neural foraminal narrowing. No signi ficant central canal stenosis IMPRESSION: Bilateral neural foraminal narrowing at multiple levels mainly secondary to prominent facet osteophyt e encroachment. Findings greater on the left side. No disc herniation. DATA REPOSITORY:
== END 2022-09-27 00:37 ==
LOC: DI 00:17
PROVIDERS: PCP Family Medicine; Visit Provider Family Medicine
DX: M47.22 Other spondylosis with radiculopathy, cervical region (principal); M54.2 Cervicalgia; M25.78 Osteophyte, vertebrae
CPT/HCPCS: 72141

== ENCOUNTER 2022-10-16 01:25 | Outpatient (CLI) | payer MEDICARE, SELFPAY ==
--- NOTE | 2022-10-16 12:27 | DI.MAMMO_ITS ---
Exam(s) MAMMO SCREENING EXAM: MAMMO SCREENING CLINICAL HISTORY: screening,z12.39 TECHNIQUE: Mammograms were interpreted according to the usual protocol including computer analysis w [employer] CAD system, tomosynthesis and C-view imaging. COMPARISON: 2012 through 2019 FINDINGS: The breasts are composed of scattered fibroglandular densities, Breast Density category B. No suspicious masses or suspicious microcalcifications are seen. No skin thickening or abnormal axillary lymph nodes are seen. There has been no significant change from prior exams. IMPRESSION: BI-RADS Category 1, Negative mammogram Yearly screening mammography is recommended. Breast Density - Category B, scattered fibroglandular densities. A negative radiographic report should not delay biopsy if a dominant or clinically suspicious mass is present. Up to ten percent of cancers are not identified on mammography. A negative report may reinforce clinical impression. Adenosis and dense breasts may obscure an underlying neoplasm. False positive reports average 6 to 10%. Patient will receive a letter notifying them of these results.
== END 2022-10-16 01:45 ==
LOC: DI 01:25
PROVIDERS: PCP Family Medicine; Visit Provider Family Medicine
DX: Z12.31 Encounter for screening mammogram for malignant neoplasm of breast (principal)
CPT/HCPCS: 77063; 77067

== ENCOUNTER 2023-01-23 12:45 | Outpatient (CLI) | payer MEDICARE, SELFPAY ==
[2023-01-23 13:00] VITALS: BP 149/78; PULSE 64; RESP 20; TEMP 36.7; O2SAT 99
--- NOTE | 2023-01-23 13:32 | PDOC.PAIN_ITS ---
Date of service: 01/23/23 Time of Service: 13:57 Pain Managment Procedure Note Procedure Note Procedure Note: CERVICAL MEDIAL BRANCH BLOCKS #1 Sharri Lynn has been referred to the [facility] Management Center for cervical medial branch blocks. COMMENTS: I previously evaluated the patient. Pre-procedure pain VAS was 5/10 Dx: Cervical spondylosis without myelopathy Patient was interviewed and the medical record reviewed. There were no medical, pharmacologic, radiographic or other structural contraindications to attempting fluoroscopically guided local anesthetic cervical medial branch blocks. Risks and expected side effects as well as potential benefit of the procedure were reviewed and voiced concerns addressed. The printed consent form was signed and witnessed. Standard time-out procedure was performed. Patient was placed in the right lateral decubitus position on the fluoroscopy table and automated blood pressure cuff and pulse oximeter applied. The skin entry points for approaching the anatomic target points of the segmental medial branches of Left C3-C6 were identified with fluoroscopy and marked. Following thorough Chlorhexadine preparation of the skin and draping and 1% lidocaine infiltration of the skin entry points and subcutaneous tissues, a 25 gauge spinal needle was placed under fluoroscopic guidance down on to the target point for each respective segmental medial branch. Position was confirmed in A/P and leteral views with 0.25ml of omnipaque 240 injected at each level. This revealed appropriate spread and no vascular uptake. At each point 0.3ml 0.5% bupivicaine was injected. The needles were then removed. Vital signs were stable throughout the procedure and were as recorded in the docflowsheet by the nursing staff. Follow up plans and appointments were discussed and patient was instructed to keep careful note of how the usual pain was modified by these injections. Specifically, the patient was asked to keep a pain diary for the next 24 hours using a numeric pain scale of 0-10 and report these results at the follow-up visit. Post procedure instruction was given as documented in the nursing documentation and having met discharge criteria, and was discharged from the Pain Management Center. Based on the medial branches blocked today, if they patient has adequate relief and we are able to proceed to radiofrequency ablation, the treatment should result in the denervation of the left C3-C4, C4-C5 and C5-C6 FACET JOINTS. We would expect to denervate a total of 3 facets during the radiofrequency ablati on. COMMENTS: Post-procedure pain VAS was 0/10. Matthew Lloyd DO, MPH [facility]-Pain Management [facility] CC: Deepti Calderon MD, DC
--- NOTE | 2023-01-23 13:57 | DI.RAD_ITS ---
Exam(s) XR PAIN CLINIC CERVICAL SP 2V EXAM: XR PAIN CLINIC CERVICAL SP 2V CLINICAL HISTORY: DX: Cervical spondylosis TECHNIQUE: 2D and realtime digital imaging was performed. CONTRAST MATERIAL: Refer to procedure report. COMPARISON: No exams were available for comparison FINDINGS: Fluoroscopy was provided for Dr. Lloyd during the performance of a cervical medial branch block. Ple ase refer to the procedure report for complete details. Ka,r=3.73 mGy IMPRESSION:
[2023-01-23] MEDS: Bupivacaine 0.5% Pres-Free 10 ML VIAL IJ (14:12)
[2023-01-23] MEDS: Omnipaque 240 MG/ML 50 ML BTL IJ (14:12)
[2023-01-23 14:13] VITALS: BP 154/78; PULSE 62; RESP 16; O2SAT 99
== END 2023-01-23 12:46 | disposition home or self-care (01) ==
LOC: PC 12:45
PROVIDERS: PCP Family Medicine; Visit Provider Preventive Medicine Occupational Medicine
DX: M54.2 Cervicalgia; M47.812 Spondylosis without myelopathy or radiculopathy, cervical region
CPT/HCPCS: 64490; 64491; 64492; 72040; Q9967

== ENCOUNTER 2023-05-13 20:24 | Emergency (ER) | payer MEDICARE, SELFPAY ==
--- NOTE | 2023-05-13 20:15 | RT.EKG_ITS ---
APPROVED REPORT Exam: Resting ECG Reason for Exam: syncoal episode Patient Location: E HR:60 bpm ECG Measurements Heart Rate 60 AXIS OK 257 P 50 QRSd 83 QRS 11 QT 450 T 46 QTc 449 Conclusion Sinus rhythm...normal P axis, V-rate 60- 99 Prolonged OK interval...OK >220, V-rate 50- 90 Nonspecific T abnormalities, anterior leads...T <-0.10mV, V2-V4 Physician: inverted t waves in V1 and V2, no stemi
[2023-05-13 20:25] VITALS: BP 138/80; PULSE 68; RESP 14; TEMP 36.3; O2SAT 95
[2023-05-13 20:34] VITALS: RESP 16
--- NOTE | 2023-05-13 20:45 | DI.CT_ITS ---
Exam(s) CT HEAD WO EXAM: CT HEAD WO CLINICAL HISTORY: syncope. TECHNIQUE: Imaging Protocol: Axial computed tomography images with coronal and sagittal reformatted images were created and reviewed COMPARISON: No exams were available for comparison FINDINGS: Ventricles and Extra axial spaces: Normal in size and morphology for the patient's age. Hemorrhage: None. Cerebral parenchyma: There is no evidence of an acute territorial infarct. Midline shift: None. Brainstem/Cerebellum: Normal. Calvarium: Normal. Visualized Paranasal sinuses/Mastoids: Clear. Soft Tissues: Unremarkable. IMPRESSION: No acute intracranial process. RADIATION DOSE DELIVERED: 697.41mGy.cm Total DLP DATA REPOSITORY: All CT scans at this facility are submitted to the National Radiology Data Registry (NRDR) Dose Index Registry (DIR) with the [employer] (ACR). RADIATION OPTIMIZATION: All CT scans at this facility use at least one of these dose optimization te chniques: automated exposure control; mA and/or kV adjustment per patient size (includes targeted exa ms where dose is matched to clinical indication); or iterative reconstruction.
[2023-05-13 20:56] LABS: Abs Immature Grans 0.04 10^3/uL (0.0-0.06); Absolute Basophil Count 0.03 10^3/uL (0.0-0.2); Absolute Eosinophil Count 0.42 10^3/uL (0.0-0.7); Absolute Monocyte Count 0.74 10^3/uL (0.1-0.8); Absolute Neutrophil Count 5.23 10^3/uL (1.2-6.7); Basophils % 0.4; HCT 45.5 % (36.0-46.0); HGB 15.3 g/dL (11.2-15.7); Immature Grans % 0.5; Lymphocytes % 22.7; MCHC 33.6 % (32.0-36.0); MCV 101 fL (80-95); MPV 11.6 fL (8.0-11.0); Monocytes % 8.9; Neutrophils % 62.5; Platelet Count 200 10^3/uL (130-400); RDW 12.6 % (11.7-14.6); RDW-SD 47.4 fL; WBC 8.36 10^3/uL (4.4-10.8)
[2023-05-13] MEDS: Normal Saline 1,000 ML 1000 ML IV (21:13)
[2023-05-13 21:19] LABS: ALT 26 U/L (14-59); AST 23 U/L (15-37); Albumin 4.7 g/dL (3.4-5.0); Alkaline Phosphatase 79 U/L (46-116); Anion Gap 14.3 mmol/L (3-11); BUN 30 mg/dL (7-18); Bilirubin, Total 0.5 mg/dL (0.2-1.0); CO2 24.7 mmol/L (21.0-32.0); CREATININE 1.4 mg/dL (0.55-1.02); Calcium 10.1 mg/dL (8.5-10.1); Chloride 98 mmol/L (98-107); Estimated GFR 39.48 (mL/min/1.73m2); Glucose 149 mg/dL (74-106); Potassium 3.2 mmol/L (3.5-5.1); Sodium 137 mmol/L (136-145); TSH 7.54 uIU/mL (0.36-3.74); Total Protein 8.2 g/dL (6.4-8.2); Troponin I < 50 ng/L (<or=60)
--- NOTE | 2023-05-13 21:37 | DI.VRAD_ITS ---
PROCEDURE INFORMATION: Exam: CT Head Without Contrast Exam date and time: 05/13/2023 9:21 PM Age: 73 years old Clinical indication: Syncope and collapse; Patient HX: Sycope, brief loc TECHNIQUE: Imaging protocol: Computed tomography of the head without contrast. Radiation optimization: All CT scans at this facility use at least one of these dose optimization techniques: automated exposure control; mA and/or kV adjustment per patient size (includes targeted exams where dose is matched to clinical indication); or iterative reconstruction. COMPARISON: MR CERVICAL SPINE WO 09/27/2022 1:07 PM FINDINGS: Brain: Mild volume loss No hemorrhage. Mild white matter disease. No mass effect. Cerebral ventricles: No ventriculomegaly. Paranasal sinuses: Visualized sinuses are unremarkable. No fluid levels. Mastoid air cells: Visualized mastoid air cells are well aerated. Bones/joints: Unremarkable. No acute fracture. Soft tissues: Unremarkable. IMPRESSION: No acute intracranial abnormality. Dictated and Authenticated by: Yaron Crabtree MD. Ordering:LAURA Arevalo MD
[2023-05-13 23:04] LABS: Troponin I < 50 ng/L (<or=60)
--- NOTE | 2023-05-14 01:19 | NUR.NOTE ---
Referral faxed to [facility] for a 48 hour holter monitor placement.Nursing Note:
--- NOTE | 2023-05-14 18:29 | W.ED.GENAD ---
Discharge Plan Disposition Patient Disposition: Home Discharge Details Clinical Impression: Syncope Primary Care Provider: Deepti Calderon ED Provider: Irina Jack Home Meds and New Rx's Prescriptions: Continued albuterol sulfate [ProAir HFA] 90 mcg/actuation HFA aerosol inhaler 1 - 2 puff Inhalation Q4H PRN Qty: 3 12RF clobetasol 0.05 % ointment 1 applic topical DAILY Qty: 60 5RF fluticasone propionate 50 mcg/actuation spray,suspension 2 spray NS BID Qty: 3 5RF tramadol 50 mg tablet 50 mg PO BID PRN celecoxib 200 mg capsule 200 mg PO DAILY PRN (Reason: pain) Qty: 30 5RF metoprolol succinate 100 mg tablet extended release 24 hr 200 mg PO DAILY Qty: 180 4RF lisinopril-hydrochlorothiazide 20-25 mg tablet 1 tab PO DAILY Qty: 90 3RF Discharge Instructions Instructions: Syncope (ED) Additional Instructions: Please follow-up with your doctor I am ordering an outpatient Holter monitor Keep yourself hydrated and eat regular meals Return earlier should you have new or worsening complaints Use caution going from sitting to standing Referrals: Deepti Calderon MD, [place] [Primary Care Provider] - 1 day Discharge Orders Other Ambulatory Orders: Holter Monitor (Routine) Timeframe: 1 Week Facility: [facility] - Location: Respiratory Therapy Ordered By: Irina Jack Discharge Data Discharge Date/Time-TO BE ENTERED AT DEPARTURE: 05/14/23 00:39 Medical Decision Making 73-year-old female presenting with report of syncopal event, approximately 2 hours prior to arrival, troponin negative, EKG does not show evidence of dysrhythmia, telemetry monitoring for 2 and half hours without evidence of dysrhythmia, patient is not orthostatic, [place] syncope places patient at low risk for adverse outcome, patient feels comfortable discharge home, Holter monitor ordered Diagnostic labs do not show significant acute abnormality, urinalysis within normal limits, troponin within normal limits, given 1 L of IV fluids, ambulatory with steady gait, nonfocal neurological exam, CT head does not show evidence of acute abnormality per radiology interpretation and my review Return precautions reviewed and patient expressed understanding Discharged home in stable condition with stable vitals HPI General Date/Time Provider Initiated Documentation: 05/13/23 20:45. HPI Narrative: This 73-year-old female presents with report of syncopal event which was witnessed by family. She had a ariana and was smoking marijuana when she felt wheezy and had a syncopal event lasted approximately a minute. Denies history of similar symptoms in the past. Denies any shortness of breath or palpitations prior to onset of symptoms. No reported seizure-like activity. She was responsive immediately after. She denies any headache and feels like she is at her baseline at this time. Event occurred approximately 2 hours prior to arrival. Denies any incontinence of urine. Denies any new medications. Denies history of dysrhythmia. Related Data Home Medications Medication Instructions Recorded Confirmed albuterol sulfate 90 mcg/actuation 1 - 2 puff inhalation Q4H PRN ##3 02/25/22 04/01/23 aerosol inhaler (ProAir HFA) clobetasol 0.05 % topical ointment 1 applic topical DAILY #60 grams 02/25/22 04/01/23 fluticasone propionate 50 2 spray NS BID ##3 02/25/22 04/01/23 mcg/actuation nasal spray,suspension celecoxib 200 mg capsule 200 mg PO DAILY PRN pain #30 caps 10/23/22 04/01/23 metoprolol succinate 100 mg 200 mg PO DAILY #180 tabs 10/23/22 04/01/23 tablet,extended release 24 hr tramadol 50 mg tablet 50 mg PO BID PRN 10/23/22 04/01/23 lisinopril 20 1 tab PO DAILY #90 tabs 04/08/23 mg-hydrochlorothiazide 25 mg tablet Previous Rx's Medication Instructions Recorded albuterol sulfate 90 mcg/actuation 1 - 2 puff inhalation Q4H PRN ##3 02/25/22 aerosol inhaler (ProAir HFA) clobetasol 0.05 % topical ointment 1 applic topical DAILY #60 grams 02/25/22 fluticasone propionate 50 2 spray NS BID ##3 02/25/22 mcg/actuation nasal spray,suspension celecoxib 200 mg capsule 200 mg PO DAILY PRN pain #30 caps 10/23/22 metoprolol succinate 100 mg 200 mg PO DAILY #180 tabs 10/23/22 tablet,extended release 24 hr lisinopril 20 1 tab PO DAILY #90 tabs 04/08/23 mg-hydrochlorothiazide 25 mg tablet Allergies Allergy/AdvReac Type Severity Reaction Status Date / Time No Known Drug Allergies Allergy Verified 04/01/23 09:07 General Stated Complaint: [id number] JEFF: 2 PFSH All Active Problems (Updated 05/14/23 @ 00:07 by ROHAN Howard) Syncope (Chronic) Syncope and collapse (Acute) Cervical spondylosis without myelopathy (Acute) Cervical radiculopathy at C6 (Acute) Left thyroid nodule (Acute) Pulmonary nodule (Acute) Thyroid nodule greater than or equal to 1 cm in diameter incidentally noted on imaging study (Acute) DVT (deep venous thrombosis) (Chronic) 09/2021, right on Eliquis, at least 6 month course DNR (do not resuscitate) (Acute) Physician orders for life-sustaining treatment (POLST) form indicates patient wish for [id number] status (Acute) Vaginal atrophy (Acute) Tubular adenoma of colon (Chronic 10/13/14) Non-alcoholic fatty liver disease (Chronic) Joint pain (Chronic 06/16/12) Hyperlipidemia (Chronic) Essential hypertension (Chronic 12/03/13) Diverticulosis (Chronic 10/13/14) 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 Essential hypertension Hyperlipidemia Stroke Asthma Father , age 84 Essential hypertension Heart disease Hyperlipidemia Sister Essential hypertension Hyperlipidemia Asthma Maternal Grandfather No problems noted. Paternal Grandfather Heart disease Myocardial infarction Maternal Grandmother Lung cancer Paternal Grandmother Diabetes LATE ONSET Essential hypertension Heart disease Ovarian cancer STRONG FAMILY HISTORY Essential hypertension Arthritis Sister Essential hypertension Depression Hyperlipidemia Son No problems noted. Son No problems noted. Social History Smoking/Tobacco Use Status: Former Tobacco Use Tobacco: How many years used: 25 Second Hand Exposure: Yes Smoking risk assessment performed?: Yes Alcohol Intake: current Alcohol Intake frequency: 0-2 drinks per day Alcohol type: hard liquor Drug use: Occasionally Substance use type: marijuana Caregiver/Support person: No Household members: family Housing: house Communication Needs: None Do you need help understanding health information?: Rarely Pets and animals: Yes Pets and animals: cat(s) and dog(s) Sexually active: No Do you think of yourself as: Asexual Current gender identity: female What is your relationship status?: living with partner How often do you talk on the phone with friends or family?: three or more times per week How often do you get together with friends or relatives?: once per week How often do you attend anabaptist or pentecostalism services?: 1-3 times per year Do you belong to any clubs or organized social groups?: no Panel score (0-1 are the most socially isolated patients): 2 What type of physical activity do you participate in: decline to answer Duration: decline to answer Frequency: decline to answer Elaina/Protestant: None Special elaina needs: No Seatbelt use: always Drive intox or ride w/intox delivery driver assistant: No Do you feel safe at home: Yes Do you feel safe in your relationship?: Yes Course Vital Signs Vital signs: Vital Signs Temperature 36.3 C L 05/13/23 20:25 Pulse 68 05/13/23 20:25 Respiratory Rate 14 05/13/23 20:25 Blood Pressure 138/80 05/13/23 20:25 Pulse Oximetry 95 05/13/23 20:25 Temperature 36.3 C L 05/13/23 20:25 Temperature Source Tympanic 05/13/23 20:25 Pulse 68 05/13/23 20:25 Respiratory Rate 16 05/13/23 20:34 Respiratory Effort Normal 05/13/23 20:34 Respiratory Depth Normal 05/13/23 20:34 Respiratory Pattern Normal 05/13/23 20:34 Blood Pressure 138/80 05/13/23 20:25 Blood Pressure Position Sitting 05/13/23 20:25 Pulse Oximetry 95 05/13/23 20:25 Oxygen Delivery Method Room Air 05/13/23 20:25 Oxygen Flow Rate 0 05/13/23 20:25 Pain Level 0 05/13/23 20:25 Lab/Test Results Lab/Test Results: Laboratory Tests Range/Units 05/13/23 05/13/23 05/13/23 20:00 20:00 22:24 WBC (4.4-10.8) 10^3/uL 8.36 RBC (3.93-5.22) 10^6/uL 4.50 Hgb (11.2-15.7) g/dL 15.3 Hct (36.0-46.0) % 45.5 MCV (80-95) fL 101 H MCH (27.0-33.0) pg 34.0 H MCHC (32.0-36.0) % 33.6 RDW (11.7-14.6) % 12.6 Plt Count (130-400) 10^3/uL 200 MPV (8.0-11.0) fL 11.6 H Immature Gran % 0.5 Neutrophils % 62.5 Lymphocytes % 22.7 Monocytes % 8.9 Eosinophils % 5.0 Basophils % 0.4 Nucleated RBC % (0.0-0.3) % 0.0 Absolute Neutrophils (1.2-6.7) 10^3/uL 5.23 Absolute Lymphocytes (1.2-3.4) 10^3/uL 1.90 Absolute Monocytes (0.1-0.8) 10^3/uL 0.74 Absolute Eosinophils (0.0-0.7) 10^3/uL 0.42 Absolute Basophils (0.0-0.2) 10^3/uL 0.03 Sodium (136-145) mmol/L 137 Potassium (3.5-5.1) mmol/L 3.2 L Chloride (98-107) mmol/L 98 Carbon Dioxide (21.0-32.0) mmol/L 24.7 Anion Gap (3-11) mmol/L 14.3 H BUN (7-18) mg/dL 30 H Creatinine (0.55-1.02) mg/dL 1.4 H Est GFR (CKD-EPI 2020) (mL/min/1.73m2) 39.48 Glucose (74-106) mg/dL 149 H Calcium (8.5-10.1) mg/dL 10.1 Magnesium (1.8-2.4) mg/dL 2.0 Total Bilirubin (0.2-1.0) mg/dL 0.5 AST (15-37) U/L 23 ALT (14-59) U/L 26 Alkaline Phosphatase (46-116) U/L 79 Troponin I (<or=60) ng/L < 50 < 50 Total Protein (6.4-8.2) g/dL 8.2 Albumin (3.4-5.0) g/dL 4.7 TSH (0.36-3.74) uIU/mL 7.54 H PAWSS Have you Been Recently Intoxicated or Drunk Within the Last 30 days?: No Result: 0
== END 2023-05-14 00:39 | disposition home or self-care (01) ==
PROVIDERS: Emergency Provider Physician Assistant; PCP Family Medicine
DX: R55 Syncope and collapse (principal)
CPT/HCPCS: 36415; 80053; 93005; 96360; 99284; 70450; 83735; 84443; 84484; 85025; 93010

== ENCOUNTER 2023-05-23 12:46 | Outpatient (RCR) | payer MEDICARE, SELFPAY ==
--- NOTE | 2023-05-23 12:45 | HOLTER_ITS ---
APPROVED REPORT Conclusion This is a 48-hour Holter monitor ordered for syncope Rhythm throughout was sinus with an average heart rate of 59. Minimum was 48, maximum 82 There were very rare isolated atrial and ventricular ectopic beats There was no atrial fibrillation no high-grade AV block no pauses greater than 3 seconds Patient symptoms were reported which had no correlation to any dysrhythmia
== END 2023-06-21 23:59 | disposition home or self-care (01) ==
LOC: CARDOPNVT 12:46
PROVIDERS: PCP Family Medicine; Visit Provider Physician Assistant
DX: R55 Syncope and collapse (principal)
CPT/HCPCS: 93227; 93225; 93226

== ENCOUNTER 2023-05-28 09:33 | Outpatient (CLI) | payer MEDICARE, SELFPAY ==
--- NOTE | 2023-05-28 06:00 | DI.RAD_ITS ---
Exam(s) XR PAIN CLINIC CERVICAL SP 2V EXAM: XR PAIN CLINIC CERVICAL SP 2V CLINICAL HISTORY: Dx: Cervical Spondylosis TECHNIQUE: 2D and realtime digital imaging was performed. CONTRAST MATERIAL: Refer to procedure report. COMPARISON: No exams were available for comparison FINDINGS: Fluoroscopy was provided for Dr. Lloyd during the performance of a cervical medial branch block. Ple ase refer to the procedure report for complete details. Ka,r=4.48 mGy IMPRESSION:
[2023-05-28 09:45] VITALS: BP 126/69; PULSE 82; RESP 20; TEMP 36.4; O2SAT 100
[2023-05-28] MEDS: Bupivacaine 0.5% Pres-Free 10 ML VIAL IJ (10:23)
[2023-05-28] MEDS: Omnipaque 240 MG/ML 50 ML BTL IJ (10:24)
--- NOTE | 2023-05-28 10:29 | PDOC.PAIN ---
Date of service: 05/28/23 Time of Service: 10:29 Pain Managment Procedure Note Procedure Note Procedure Note: PROCEDURE NOTE LEFT SIDED CERVICAL MEDIAL BRANCH BLOCKS #2 Date of Service: May 28, 2023 Patient: Sharri Lynn Provider: Matthew Lloyd DO, MPH Sharri Lynn has been referred to the Pain Management Center for cervical medial branch blocks. Pre-operative diagnosis: Cervical Spondylosis without Myelopathy Post-operative diagnosis: Same Pre-procedure pain: VAS= 5/10 COMMENTS: She did very well with her first CMBB. Her pain returned to baseline. Carloswas interviewed and the medical records were reviewed. There were no medical, pharmacologic, radiographic or other structural contraindications to attempting fluoroscopically guided local anesthetic cervical medial branch blocks. Risks and potential side effects were discussed. I also discussed the potential benefit(s) of the procedure with Sharri, and voiced concerns were addressed. After Sharri was completely informed about the procedure, the printed consent form was signed. A standard time-out procedure was performed. Sharri was placed in the lateral decubitus position on the fluoroscopy table with the effected side up. Automated blood pressure cuff and pulse oximeter were applied. The skin entry points for approaching the anatomic target points of the segmental medial branches of Left C3,C4,C5 and C6 were identified with fluoroscopy and marked. The skin at the target site area was thoroughly prepared with Chlorhexadine. The skin was then draped. Next, a 25 gauge 3.5 spinal needle was placed under fluoroscopic guidance down on to the target point (the articular pillar) for each respective segmental medial branch. Position was confirmed in A/P and lateral views. Aspiration revealed no blood or clear fluid. Next, 0.25ml of omnipaque 240 was injected at each level. No contrast following a vascular or neural pattern was visualized under continuous fluoroscopy. Next, 0.25 ml of preservative-free 0.5% bupivicaine was injected at each level. (49 mls of Omnipaque was wasted) There was no unusual discomfort expressed by Sharri. The needles were withdrawn without difficulty. Sharri was observed and was without hemodynamic, neurologic, or allergic reactions.? Fluoroscopic images were digitally archived. Sharri's vital signs were stable throughout the procedure and were as recorded in the docflowsheet by the nursing staff. Provacative testing using the Modified [place]'s facet loading test Left side Directly before the block VAS (0-10) = 5/10 Five minutes after the block VAS (0-10) = 3/10 Percentage relief obtained with this diagnostic block 80% Any improved physical functioning directly after the blocks? 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 Sharri was instructed to keep careful note of how the usual pain was modified by these injections. Specifically, to keep a pain diary for the next 4 hours using a numeric pain scale of 0-10 and report these results. Post procedure instruction was given as documented in the nursing documentation and having met discharge criteria, the patient was discharged from the [facility]. Based on the medial branches blocked today, if Sharri has adequate relief and we are able to proceed to radiofrequency ablation, the treatment should result in the denervation of the Left C3-C4, C4-C5, and C5-C6 facet joints. We would expect to denervate a total of 3 facets during the radiofrequency ablation. COMMENTS: No apparent complications. Post-procedure pain: VAS= 2-3/10 Sharri will call back with 0-4 hour post-procedure pain scores. I personally performed the entire procedure. MATTHEW LLOYD DO, MPH ABPM&R-subspecialty board certification in Pain Medicine [facility]
[2023-05-28 10:46] VITALS: BP 139/67; PULSE 57; RESP 17; O2SAT 97
== END 2023-05-28 09:34 | disposition home or self-care (01) ==
LOC: PC 09:34
PROVIDERS: PCP Family Medicine; Visit Provider Preventive Medicine Occupational Medicine
DX: M54.2 Cervicalgia (principal); M47.812 Spondylosis without myelopathy or radiculopathy, cervical region
CPT/HCPCS: 64490; 64491; 64492; 72040; 93226; Q9967

== ENCOUNTER → 2023-06-18 01:31 | Outpatient (CLI) | payer MEDICARE, SELFPAY ==
--- NOTE | 2023-06-18 07:15 | DI.US_ITS ---
Exam(s) US THYROID EXAM: US THYROID CLINICAL HISTORY: Benign on biopsy, TR 5, assess for change,LT THYROID NODULE,E04.1. TECHNIQUE: Ultrasound thyroid performed using standard protocol. COMPARISON: US US THYROID from 01/25/2022 US US NEEDLE LOCAL OTHER WO RAD from 05/13/2022 FINDINGS: ISTHMUS: 2 mm RIGHT LOBE: Size: 3.8 x 1.3 x 1.2 cm Echogenicity: Normal. Vascularity: Normal. Nodules: No suspicious nodules are seen. LEFT LOBE: Size: 4 x 1.3 x 1 cm Echogenicity: Normal. Vascularity: Normal. Nodules: There is again seen a 1.9 x 1.4 x 1.9 cm mixed isoechoic nodule in the inferior aspect of th e left lobe. It has echogenic foci. It is unchanged in size compared to the prior examination. It is consistent with a TI rads 4 level nodule. Due to its size, biopsy is recommended. Note is made t hat this nodule was biopsied on 05/13/2022. OTHER FINDINGS: None. IMPRESSION: Stable sonographic appearance of the left thyroid nodule. DATA REPOSITORY:
== END ==
PROVIDERS: PCP Family Medicine; Visit Provider Otolaryngology
DX: E04.1 Nontoxic single thyroid nodule (principal)
CPT/HCPCS: 76536

== ENCOUNTER 2023-08-27 12:54 | Outpatient (CLI) | payer MEDICARE, SELFPAY ==
[2023-08-27 13:09] VITALS: BP 173/69; PULSE 57; RESP 20; TEMP 36.6; O2SAT 95
[2023-08-27] MEDS: Midazolam 2 MG/2 ML VIAL IVP (13:45)
[2023-08-27] MEDS: fentaNYL 100 MCG/2 ML VIAL IVP (13:45)
[2023-08-27] MEDS: Lactated Ringers 500 ML 80 ML IV (14:05)
--- NOTE | 2023-08-27 14:11 | DI.RAD_ITS ---
Exam(s) XR PAIN CLINIC CERVICAL SP 2V EXAM: XR PAIN CLINIC CERVICAL SP 2V CLINICAL HISTORY: Dx: Cervical Spondylosis. TECHNIQUE: Fluoroscopy was provided for the referring physician for guidance with performing pain cl inic injection procedure. COMPARISON: No exams were available for comparison FINDINGS: Please see procedure note for details. Fluoro time: 37.7 seconds RADIATION DOSE DELIVERED: Ka,r=5.75 mGy
--- NOTE | 2023-08-27 14:11 | PDOC.PAIN ---
Date of service: 08/27/23 Time of Service: 14:11 Pain Managment Procedure Note Procedure Note Procedure Note: PROCEDURE NOTE LEFT Cervical Radiofrequency Ablation Date of Service: August 27, 2023 Patient:? Sharri Lynn? Provider:? Matthew Lloyd DO, MPH Sharri Lynn [facility] LEFT Cervical Radiofrequency Ablation with the [employer] Machine.? Pre Operative Diagnosis: Cervical Spondylosis without Myelopathy Post Operative Diagnosis: Same Pre procedure pain; VAS= 7/10 Comments: She did very well with 2 CMBBs PROCEDURE: 1. Left C3-C4 facet joint radiofrequency denervation 2. Left C4-C5 facet joint radiofrequency denervation 3. Left C5-C6 facet joint radiofrequency denervation Sharri?was interviewed and the medical record was reviewed.? There were no medical, pharmacologic, radiographic or other structural contraindications to attempting fluoroscopically guided LEFT Cervical Radiofrequency Ablation.?Risks and expected side effects as well as potential benefit of the procedure were reviewed with Sharri, and the patient's voiced concerns were addressed.? The printed consent form was signed.? Standard time-out procedure was performed. Sharri was brought to the procedure suite and placed on the exam table in a comfortable lateral recumbent position. A grounding pad was placed on the left abdomen. The place for the needle placement was obtained by manual palpation as well as radiographic confirmation. The sterile field was prepped by chlorhexidine and sterile drapes. Local anesthesia, both superficial and deep was provided by local infiltration of 3 ml Lidocaine 1%. Using fluoroscopic guidance, A 17g 50 mm radiofrequency introducer needle with a 2 mm active tip was placed overlying the left C3 cervical vertebra from the lateral approach and was advanced until bony contact was felt with the articular pillar. Attempted aspiration revealed no blood or cerebrospinal fluid. Motor testing was then performed with 2.0 volts and no upper extremity motor stimulation was observed. 1 ml of 2% Lidocaine was injected through the RF needle. A radiofrequency lesion of the Left medial branch of C3 was then performed at 80 degrees Celsius for 2 minutes and 30 seconds. There was no unusual discomfort expressed by Sharri. The needles were withdrawn without difficulty. Sharri was observed and was without hemodynamic, neurologic, or allergic reactions. Fluoroscopic images were digitally archived. The same procedure was repeated for left C4, C5 and C6 medial branches. POST PROCEDURE EVALUATION: IMPRESSION: 1. Medication given is documented in the MAR 2. Follow up plan: Sharri to contact [facility] as needed. This procedure may be repeated if the patient achieves at least 50% improvement in pain and/or function for at least 6 months. 3. Estimated Blood Loss: <5ml 4. Fluoroscopy time: Documented in the EMR Follow up plans and appointments were discussed with Sharri. Post procedure instruction was given as documented in nursing documentation and having met discharge criteria, Sharri was [facility] from the [facility]. COMMENTS: No apparent complications. Post-procedure pain: VAS= 0/10. I personally performed this entire procedure. MATTHEW LLOYD DO, MPH ABPM&R - Subspecialty board certification in Pain Medicine [facility] [facility]
[2023-08-27 14:16] VITALS: BP 119/69; PULSE 96; RESP 18; O2SAT 95
[2023-08-27] MEDS: Dexamethasone Sod. Phos./Pres-Free 10 MG/ML VIAL IJ (14:25)
[2023-08-27] MEDS: Lidocaine 2% Pres-Free 5 ML VIAL IJ (14:25)
[2023-08-27] MEDS: Bupivacaine 0.5% Pres-Free 10 ML VIAL IJ (14:26)
== END 2023-08-27 12:55 | disposition home or self-care (01) ==
LOC: PC 12:54
PROVIDERS: PCP Family Medicine; Visit Provider Preventive Medicine Occupational Medicine
DX: M54.2 Cervicalgia (principal); M47.812 Spondylosis without myelopathy or radiculopathy, cervical region
CPT/HCPCS: 00123; 64633; 64634; 72040; J2250; J3010

== ENCOUNTER 2023-10-14 03:55 | Outpatient (CLI) | payer MEDICARE, SELFPAY ==
[2023-10-14 13:12] LABS: ALT 25 U/L (14-59); AST 19 U/L (15-37); Albumin 3.7 g/dL (3.4-5.0); Alkaline Phosphatase 59 U/L (46-116); Anion Gap 7.3 mmol/L (3-11); BUN 22 mg/dL (7-18); Bilirubin, Total 0.5 mg/dL (0.2-1.0); CO2 26.7 mmol/L (21.0-32.0); CREATININE 1.2 mg/dL (0.55-1.02); Calcium 9.1 mg/dL (8.5-10.1); Calculated LDL 120 mg/dL (<100); Chloride 104 mmol/L (98-107); Cholesterol 202 mg/dL (<200); Glucose 111 mg/dL (74-106); HDL Cholesterol 56 mg/dL (40-60); Potassium 3.9 mmol/L (3.5-5.1); Sodium 138 mmol/L (136-145); TSH (W/Ref FT4) 2.59 uIU/mL (0.36-3.74); Total Protein 6.7 g/dL (6.4-8.2); Triglyceride 133 mg/dL (<150)
== END 2023-10-14 03:56 | disposition home or self-care (01) ==
LOC: LOS 03:55
PROVIDERS: PCP Family Medicine; Visit Provider Family Medicine
DX: E04.1 Nontoxic single thyroid nodule (principal); E78.5 Hyperlipidemia, unspecified; I10 Essential (primary) hypertension
CPT/HCPCS: 36415; 80053; 80061; 84443

== ENCOUNTER 2023-10-31 07:14 | Day surgery (SDC) | payer MEDICARE, SELFPAY ==
[2023-10-31 07:15] VITALS: BP 146/68; PULSE 70; RESP 18; TEMP 36.3; O2SAT 96
--- NOTE | 2023-10-31 07:36 | ANES.PREOP_ITS ---
General Info Date of Service Date Performed: 10/31/23 Height: 5 ft 3 in Weight: 59.874 kg Body Mass Index (BMI): 23.3 Surgical Procedure: Operation Date: 10/31/23 08:25 Proposed Procedure Side Surgeon p Cataract Extraction with IOL Implant Left Howard Oquendo MD Meds Allergies and Home Medications Allergies Allergy/AdvReac Type Severity Reaction Status Date / Time No Known Drug Allergies Allergy Verified 10/29/23 10:26 Home Medication Medication Instructions Recorded fluticasone propionate 50 2 spray NS BID ##3 02/25/22 mcg/actuation nasal spray,suspension lisinopril 20 1 tab PO DAILY #90 tabs 04/08/23 mg-hydrochlorothiazide 25 mg tablet clobetasol 0.05 % topical ointment 1 applic topical DAILY #60 grams 07/21/23 albuterol sulfate 90 mcg/actuation 1 - 2 puff inhalation Q4H PRN ##3 09/30/23 aerosol inhaler (ProAir HFA) celecoxib 200 mg capsule 200 mg PO DAILY PRN pain #30 caps 09/30/23 metoprolol succinate 100 mg 200 mg (2 x 100 mg) PO DAILY #180 09/30/23 tablet,extended release 24 hr tabs estradiol 10 mcg vaginal tablet 10 mcg vaginal .3 times weekly #36 10/17/23 (Yuvafem) tabs Current Visit Medications: Current Medications Generic Name Dose Route Start Last Admin Trade Name Freq PRN Reason Stop Dose Admin Acetaminophen 1,000 mg 10/31/23 06:00 Acetaminophen 500 Mg Tab PO 11/30/23 05:59 Q4H PRN PRN Balanced Salt Solution 500 ml 10/31/23 06:00 Balanced Salt Soln.-Plus 500 Ml Bag OP 11/30/23 05:59 DIRECTED TASHA Miscellaneous Medication 0 ml 10/31/23 06:00 Prednisolone 1%, Moxifloxacin 0.5%, Bromfenac 0.09% 5ml Btl OS 11/30/23 05:59 DIRECTED TASHA Miscellaneous Medication 0 ml 10/31/23 06:00 10/31/23 07:33 Tropicam./Phenyleph. (1/2.5%) 10 Ml Btl OS 11/30/23 05:59 1 drp DIRECTED TASHA Administration Tetracaine HCl 0 ml 10/31/23 06:00 Tetracaine 0.5% 4 Ml Btl OS 11/30/23 05:59 DIRECTED TASHA [facility] Active Problems Active Problems: Problem Status Onset Code Cortical age-related cataract, left eye H25.012 Nuclear age-related cataract, left eye H25.12 Cataract H26.9 Syncope and collapse R55 Cervical spondylosis without myelopathy M47.812 Cervical radiculopathy at C6 M54.12 Left thyroid nodule E04.1 Pulmonary nodule R91.1 Thyroid nodule greater than or equal to 1 cm in diameter incidentally noted on imaging study E04.1 DVT (deep venous thrombosis) I82.409 DNR (do not resuscitate) Z66 Physician orders for life-sustaining treatment (POLST) form indicates patient wish for qg-xss-gmevplmutou status Z66 Vaginal atrophy N95.2 Tubular adenoma of colon 10/13/14 D12.6 Non-alcoholic fatty liver disease K76.0 Joint pain 06/16/12 M25.50 Hyperlipidemia E78.5 Essential hypertension 12/03/13 I10 Diverticulosis 10/13/14 K57.90 Chronic low back pain with bilateral sciatica M54.41, M54.42, G89.29 Cervical spondylosis 07/20/09 M47.812 Carpal tunnel syndrome G56.00 Annual physical exam 05/16/15 Z00.00 Medical History Medical History Hypertrophy of breast S/P breast reduction Polyp of colon 08/21/04 Tubular adenoma in rectum; 04/30 Colonoscopy: Diverticulosis, BUT NO POLYPS Surgical History Surgical History H/O bilateral breast reduction surgery History of tonsillectomy and adenoidectomy Hx of lumbar discectomy L5 Open Carpal Tunnel release (~2006) PROCEDURES EXC/DEST INTVRT DISC NOS; L5 Reduction mammoplasty S/P carpal tunnel release 09/22/06 Tobacco Smoking/Tobacco Use Status: Former Tobacco Use Passive smoking exposure: Yes Second hand exposure: Yes Alcohol Alcohol Intake: current Alcohol intake frequency: 0-2 drinks per day Alcohol type: hard liquor Details: 2-3 daily Substance Use Substance use: Daily Substance use type: marijuana Vital Signs and Lab Results Vital Signs Most Recent Vital Signs in EMR: Most Recent Vital Signs Temp Pulse Resp BP Pulse Ox 36.3 C L 70 18 146/68 H 96 10/31/23 07:15 10/31/23 07:15 10/31/23 07:15 10/31/23 07:15 10/31/23 07:15 Lab Results Blood Type / Crossmatch: No Data to Display Complete Blood Count: No Data to Display Complete Metabolic Panel: Sodium 138 mmol/L (136-145) 10/14/23 09:54 Potassium 3.9 mmol/L (3.5-5.1) 10/14/23 09:54 Chloride 104 mmol/L (98-107) 10/14/23 09:54 Carbon Dioxide 26.7 mmol/L (21.0-32.0) 10/14/23 09:54 BUN 22 mg/dL (7-18) H 10/14/23 09:54 Creatinine 1.2 mg/dL (0.55-1.02) H 10/14/23 09:54 Est GFR (CKD-EPI 2020) 47.50 (mL/min/1.73m2) 10/14/23 09:54 Calcium 9.1 mg/dL (8.5-10.1) 10/14/23 09:54 Albumin 3.7 g/dL (3.4-5.0) 10/14/23 09:54 Glucose 111 mg/dL (74-106) H 10/14/23 09:54 Liver Function Panel: Alanine Aminotransferase (ALT/SGPT) 25 U/L (14-59) 10/14/23 09: 54 Aspartate Amino Transf (AST/SGOT) 19 U/L (15-37) 10/14/23 09:54 Coagulation Panel: No Data to Display Cardiac Panel: No Data to Display Arterial Blood Gas: No Data to Display Venous Blood Gas: No Data to Display Pancreas Panel: No Data to Display Thyroid Panel: Thyroid Stimulating Hormone (TSH) 2.59 uIU/mL (0.36-3.74) 10/14 09:54 Infectious Disease: No Data to Display Blood Cultures: No Data to Display Toxicology Panel: No Data to Display Imaging and Studies Imaging and Studies Study information below may be from another EMR and interpreted by another provider. Please see original notes in EMR for more complete details. EKG Summary: DATE/TIME OF SERVICE: 05/13/232026 : 1950 PERFORMING LOCATION: ER APPROVED REPORT Exam: Resting ECG Reason for Exam: syncoal episode Patient Location: E HR:60 bpm ECG Measurements Heart Rate 60 AXIS NV 257 P 50 QRSd 83 QRS 11 QT 450 T46 QTc 449 Conclusion Sinus rhythm...normal P axis, V-rate 60- 99 Prolonged NV interval...NV >220, V-rate 50- 90 Nonspecific T abnormalities, anterior leads...T <-0.10mV, V2-V4 Physician: inverted t waves in V1 and V2, no stemi Anesthesia Assessment and Plan Anesthesia History Personal History: No History of Anesthesia Complications Family History: No Family History of Anesthesia Complications Exercise Tolerance Exercise Tolerance: Metabolic Equivalents>4 Pertinent Negatives Pertinent Negatives: No Symptoms of GERD Cardiac & Pulmonary Exam Cardiac Exam: Normal S1/S2 Heart Sounds Pulmonary Exam: Clear Bilateral Breath Sounds Implantable Cardiac Device Does patient have a Pacemaker or an ICD?: No Airway Exam Known Difficult Airway: No Mallampati Class: 2 Mouth Opening: Normal (> 3cm) Thyromental Distance: Greater than 3 cm Neck Range of Motion: Full ROM Neck Circumference: Normal Teeth Condition: Normal Dentition ASA Classification ASA Score: ASA 2 Emergency Case?: No NPO Status NPO Status: NPO Clears >2 hours, Solids >8 hours Anesthesia Plan Resuscitation Status: Full Code Anesthesia Technique: MAC Anesthesia Airway Planned: Natural Airway Monitors Used: Standard Monitors
[2023-10-31 07:38] VITALS: BMI 23.3
[2023-10-31] MEDS: Tetracaine 0.5% 4 ML BTL OS (08:10)
[2023-10-31] MEDS: Povidone-Iodine Ophth 30 ML BTL (08:15)
[2023-10-31] MEDS: Balanced Salt Soln.-PLUS 500 ML BAG OP (08:16)
[2023-10-31] MEDS: Duovisc Viscoelastic System EACH 1 EACH (08:16)
[2023-10-31] MEDS: Lidocaine 1% Pres-Free 5 ML VIAL (08:19)
[2023-10-31 08:37] VITALS: BP 143/49; PULSE 52; RESP 18; TEMP 36.6; O2SAT 99
--- NOTE | 2023-10-31 08:37 | W.PM.DSUDISC ---
Date of service: 10/31/23 Time of Service: 08:37 Discharge Plan Disposition Patient Disposition: Home Discharge Details Attending Provider: Howard Oquendo Primary Care Provider: Deepti Calderon Home Meds and New Rx's Prescriptions: No Action fluticasone propionate 50 mcg/actuation spray,suspension 2 spray NS BID Qty: 3 5RF albuterol sulfate [ProAir HFA] 90 mcg/actuation HFA aerosol inhaler 1 - 2 puff Inhalation Q4H PRN Qty: 3 12RF metoprolol succinate 100 mg tablet extended release 24 hr 200 mg PO DAILY Qty: 180 4RF celecoxib 200 mg capsule 200 mg PO DAILY PRN (Reason: pain) Qty: 30 2RF lisinopril-hydrochlorothiazide 20-25 mg tablet 1 tab PO DAILY Qty: 90 3RF clobetasol 0.05 % ointment 1 applic topical DAILY Qty: 60 5RF estradiol [Yuvafem] 10 mcg tablet 10 mcg vaginal .3 times weekly Qty: 36 4RF Discharge Instructions Stand Alone Forms: Post-op Block Cataract, DSU Post-Op Cataract, Dhaval Gasca (DSU) Discharge Orders Discharge Orders: Discharge Order (Routine); Ordered 10/31/23 Ordered By: Howard Oquendo DS: Diagnosis Discharge Diagnosis (1) Cortical age-related cataract, left eye: Status: Resolved (2) Nuclear age-related cataract, left eye: Status: Resolved
--- NOTE | 2023-10-31 08:38 | ROE_ITS ---
Date of service: 10/31/23 Time of Service: 08:38 Operative Note Operative Note DATE OF PROCEDURE: 10/31/23 PRE-OP DIAGNOSIS: Nuclear/cortical cataract, left eye POST-OP DIAGNOSIS: same PROCEDURE: Cataract extraction using phacoemulsification with intraocular lens implant, left eye SURGEON: Howard Oquendo ANESTHESIA TYPE: Local By Surgeon and MAC Refer to Anesthesia Record PATHOLOGY: none sent COMPLICATIONS: None Patient was transported to: same day Patient's condition: stable Implants: Jose Enrique Clareon [id number] Indications: Progressive decreased vision due to cataract, left eye Procedure Description: CATARACT SURGERY OPERATIVE REPORT PREOPERATIVE DIAGNOSIS: Nuclear/cortical cataract, left eye POSTOPERATIVE DIAGNOSIS: Same OPERATION: Cataract extraction using phacoemulsification with posterior chamber intraocular lens implant, left eye. IOL: IOL Pari [employer] T[employer] Cashier/Model: Jose Enrique Clareon [id number] IOL Power: + 21.5 diopters IOL Serial Number: [id number] Optic Diameter: 6.0mm Haptic/Overall Diameter: 13.0mm PHACO INFO: [employer] Fundurion Vision System with OZil and Active Fluidics Cumulative Dispersed Energy (CDE): 5.45 seconds SURGEON: Howard Oquendo MD, ZULEMA ANESTHESIA: Monitored Anesthesia Care (MAC), with local sub-tenon's anesthetic infiltration COMPLICATIONS: None SPECIMENS: None INDICATIONS FOR PROCEDURE: The patient is a 73-year-old lady with history of diminished visual acuity in her left eye secondary to the development of nuclear/cortical cataract. She is significantly symptomatic that she desires cataract surgery and attempt to improve and maximize her vision. See office notes for detailed information. PROCEDURE: The correct surgical eye was identified and marked as the left eye and the pupil was dilated in the preoperative area using mydriatics and cycloplegics. The dilated pupil size was 6.0 mm. The patient elected to proceed without oral sedation. The patient was brought to the operating room where cardiopulmonary monitoring was instituted and surgical time-out was p erformed, confirming the correct operative eye and IOL power. Topical anesthesia was administered and ophthalmic povidone-iodine 5% was instilled into the conjunctival fornices. The mike-ocular area was prepped with Betadine 10% solution and draped in the usual sterile fashion for intraocular surgery, including an aperture drape. A Tegaderm transparent film dressing was cut in half and used to cover the lashes and lid margins. Care was taken to sequester the lashes and lid margins under the Tegaderm dressing. A lid speculum was placed between the lids of the operative eye and the Jose Enrique [employer] Revalia operating microscope was maneuvered into position. Carmen scissors were then used to make a conjunctival buttonhole approximately 6mm posterior to the limbus in the inferonasal quadrant. Blunt dissection was carried out to expose bare sclera, and a blunt-tipped sub-tenon?s anesthesia cannula was introduced and passed posteriorly along the globe where non- preserved plain lidocaine was injected into posterior sub-Tenon?s space. A sideport knife was used to make a paracentesis port. Intraocular phenylephrine/lidocaine was injected into the anterior chamber. The anterior chamber was then filled with viscoelastic. A keratome knife was used construct a two-plane clear corneal tunnel extending 2.0mm into clear cornea. A flap was raised on the anterior capsule and capsulorhexis forceps were used to complete a continuous curvilinear capsulorhexis of 5.0 mm. Balanced salt solution was then used to perform cortical cleaving hydrodissection and nuclear hydrodelineation until the lens could be freely rotated within the capsular bag. The lens nucleus was then disassembled and removed within the capsular bag and iris plane using phacoemulsification. Residual cortical material was removed using the irrigation/aspiration handpiece. The posterior capsule was carefully polished to remove as much residual lens epithelial cells as safely possible. The capsular bag was then inflated and the anterior chamber deepened with viscoelastic. The lens implant described above was inserted into the capsular bag using the Jose Enrique Autonome Injector. A Kuglen hook was used to dial the IOL into position. Residual viscoelastic was then removed first from posterior to the IOL, then from the anterior chamber using the I/A handpiece. The lens implant was noted to center nicely within the capsular bag. The incisions were stromally hydrated, and the anterior chamber was reformed using BSS. Then 0.5cc of moxifloxacin 1.0mg/ml were injected into the capsular bag and anterior chamber. The incisions were checked with a Weck spear and found to be secure. Several drops of ophthalmic povidone-iodine 5% were then applied to the eye followed by two drops of combination steroid/NSAID/antibiotic solution. The drapes were removed and a clear plastic protective eye shield was placed over the eye. The patient was then returned to Same Day Surgery in stable condition.
--- NOTE | 2023-10-31 08:51 | W.ANESPOSTOP ---
Postoperative Evaluation Date, Time and Location Date Performed: 10/31/23 Time Performed: 08:47 Patient Location: Day Surgery Unit Vital Signs Most Recent Imported Vital Signs: Most Recent Vital Signs Temp Pulse Resp BP Pulse Ox 36.6 C 52 L 18 143/49 H 99 10/31/23 08:37 10/31/23 08:37 10/31/23 08:37 10/31/23 08:37 10/31/23 08:37 Pain Score Most Recent Pain Score: Most Recent Pain Score Pain Level 0 10/31/23 08:37 Assessment Mental Status: Awake (Alert & Oriented to Patient Baseline) Airway and Respiratory Function: Patent airway with normal (patient baseline) respiratory exam Cardiovascular Function: Hemodynamically Stable Hydration Status: Adequately Hydrated Nausea & Vomiting: No Nausea or Vomiting Pain: Pt. Denies Any Pain Peripheral Nerve Block: Patient did not receive a nerve block
== END 2023-10-31 09:01 | disposition home or self-care (01) ==
LOC: SUR 07:14
PROVIDERS: PCP Family Medicine; Visit Provider Ophthalmology
PROC: (CPT 66984; principal; 2023-10-31 08:15)
DX: H25.012 Cortical age-related cataract, left eye (principal); H25.12 Age-related nuclear cataract, left eye; I10 Essential (primary) hypertension
CPT/HCPCS: 66984; 00123; V2632; J2003

== ENCOUNTER 2023-11-14 07:41 | Day surgery (SDC) | payer MEDICARE, SELFPAY ==
[2023-11-14 07:44] VITALS: BP 137/74; PULSE 60; RESP 16; TEMP 36.3; O2SAT 97
--- NOTE | 2023-11-14 08:05 | ANES.PREOP_ITS ---
General Info Date of Service Date Performed: 11/14/23 Height: 5 ft 3 in Weight: 60 kg Body Mass Index (BMI): 23.4 Surgical Procedure: Operation Date: 11/14/23 09:10 Proposed Procedure Side Surgeon p Cataract Extraction with IOL Implant Right Howard Oquendo MD Meds Allergies and Home Medications Allergies Allergy/AdvReac Type Severity Reaction Status Date / Time No Known Drug Allergies Allergy Verified 10/29/23 10:26 Home Medication Medication Instructions Recorded fluticasone propionate 50 2 spray NS BID ##3 02/25/22 mcg/actuation nasal spray,suspension lisinopril 20 1 tab PO DAILY #90 tabs 04/08/23 mg-hydrochlorothiazide 25 mg tablet clobetasol 0.05 % topical ointment 1 applic topical DAILY #60 grams 07/21/23 albuterol sulfate 90 mcg/actuation 1 - 2 puff inhalation Q4H PRN ##3 09/30/23 aerosol inhaler (ProAir HFA) celecoxib 200 mg capsule 200 mg PO DAILY PRN pain #30 caps 09/30/23 metoprolol succinate 100 mg 200 mg (2 x 100 mg) PO DAILY #180 09/30/23 tablet,extended release 24 hr tabs estradiol 10 mcg vaginal tablet 10 mcg vaginal .3 times weekly #36 10/17/23 (Yuvafem) tabs Current Visit Medications: Current Medications Generic Name Dose Route Start Last Admin Trade Name Freq PRN Reason Stop Dose Admin Acetaminophen 1,000 mg 11/14/23 06:00 Acetaminophen 500 Mg Tab PO 12/14/23 05:59 Q4H PRN PRN Balanced Salt Solution 500 ml 11/14/23 06:00 Balanced Salt Soln.-Plus 500 Ml Bag OP 12/14/23 05:59 DIRECTED TASHA Miscellaneous Medication 0 ml 11/14/23 06:00 Prednisolone 1%, Moxifloxacin 0.5%, Bromfenac 0.09% 5ml Btl OD 12/14/23 05:59 DIRECTED TASHA Miscellaneous Medication 0 ml 11/14/23 06:00 11/14/23 08:04 Tropicam./Phenyleph. (1/2.5%) 10 Ml Btl OD 12/14/23 05:59 1 drp DIRECTED TASHA Administration Tetracaine HCl 0 ml 11/14/23 06:00 Tetracaine 0.5% 4 Ml Btl OD 12/14/23 05:59 DIRECTED [facility] Active Problems Active Problems: Problem Status Onset Code Cortical age-related cataract, right eye H25.011 Nuclear age-related cataract, right eye H25.11 Cortical age-related cataract, left eye H25.012 Nuclear age-related cataract, left eye H25.12 Cataract H26.9 Syncope and collapse R55 Cervical spondylosis without myelopathy M47.812 Cervical radiculopathy at C6 M54.12 Left thyroid nodule E04.1 Pulmonary nodule R91.1 Thyroid nodule greater than or equal to 1 cm in diameter incidentally noted on imaging study E04.1 DVT (deep venous thrombosis) I82.409 DNR (do not resuscitate) Z66 Physician orders for life-sustaining treatment (POLST) form indicates patient wish for wr-oiu-eczvnbkbppe status Z66 Vaginal atrophy N95.2 Tubular adenoma of colon 10/13/14 D12.6 Non-alcoholic fatty liver disease K76.0 Joint pain 06/16/12 M25.50 Hyperlipidemia E78.5 Essential hypertension 12/03/13 I10 Diverticulosis 10/13/14 K57.90 Chronic low back pain with bilateral sciatica M54.41, M54.42, G89.29 Cervical spondylosis 07/20/09 M47.812 Carpal tunnel syndrome G56.00 Annual physical exam 05/16/15 Z00.00 Medical History Medical History Hypertrophy of breast S/P breast reduction Polyp of colon 08/21/04 Tubular adenoma in rectum; 04/30 Colonoscopy: Diverticulosis, BUT NO POLYPS Surgical History Surgical History H/O bilateral breast reduction surgery History of tonsillectomy and adenoidectomy Hx of lumbar discectomy L5 Open Carpal Tunnel release (~2006) PROCEDURES EXC/DEST INTVRT DISC NOS; L5 Reduction mammoplasty S/P carpal tunnel release 09/22/06 Tobacco Smoking/Tobacco Use Status: Former Tobacco Use Passive smoking exposure: Yes Second hand exposure: Yes Alcohol Alcohol Intake: current Alcohol intake frequency: 0-2 drinks per day Alcohol type: hard liquor Details: 2-3 daily Substance Use Substance use: Daily Substance use type: marijuana Details: Last marijuana 11/13 1999 Vital Signs and Lab Results Vital Signs Most Recent Vital Signs in EMR: Most Recent Vital Signs Temp Pulse Resp BP Pulse Ox 36.3 C L 60 16 137/74 97 11/14/23 07:44 11/14/23 07:44 11/14/23 07:44 11/14/23 07:44 11/14/23 07:44 Lab Results Blood Type / Crossmatch: No Data to Display Complete Blood Count: No Data to Display Complete Metabolic Panel: No Data to Display Liver Function Panel: No Data to Display Coagulation Panel: No Data to Display Cardiac Panel: No Data to Display Arterial Blood Gas: No Data to Display Venous Blood Gas: No Data to Display Pancreas Panel: No Data to Display Thyroid Panel: No Data to Display Infectious Disease: No Data to Display Blood Cultures: No Data to Display Toxicology Panel: No Data to Display Imaging and Studies Imaging and Studies Study information below may be from another EMR and interpreted by another provider. Please see original notes in EMR for more complete details. EKG Summary: DATE/TIME OF SERVICE: 05/13/232026 : 1950 PERFORMING LOCATION: ER APPROVED REPORT Exam: Resting ECG Reason for Exam: syncoal episode Patient Location: E HR:60 bpm ECG Measurements Heart Rate 60 AXIS GA 257 P 50 QRSd 83 QRS 11 QT 450 T46 QTc 449 Conclusion Sinus rhythm...normal P axis, V-rate 60- 99 Prolonged GA interval...GA >220, V-rate 50- 90 Nonspecific T abnormalities, anterior leads...T <-0.10mV, V2-V4 Physician: inverted t waves in V1 and V2, no stemi Anesthesia Assessment and Plan Anesthesia History Personal History: No History of Anesthesia Complications Family History: No Family History of Anesthesia Complications Exercise Tolerance Exercise Tolerance: Metabolic Equivalents>4 Pertinent Negatives Pertinent Negatives: No Symptoms of GERD Cardiac & Pulmonary Exam Cardiac Exam: Normal S1/S2 Heart Sounds Pulmonary Exam: Clear Bilateral Breath Sounds Implantable Cardiac Device Does patient have a Pacemaker or an ICD?: No Airway Exam Known Difficult Airway: No Mallampati Class: 2 Mouth Opening: Normal (> 3cm) Thyromental Distance: Greater than 3 cm Neck Range of Motion: Full ROM Neck Circumference: Normal Teeth Condition: Normal Dentition ASA Classification ASA Score: ASA 2 Emergency Case?: No NPO Status NPO Status: NPO Clears >2 hours, Solids >8 hours Anesthesia Plan Resuscitation Status: Full Code Anesthesia Technique: MAC Anesthesia Airway Planned: Natural Airway Monitors Used: Standard Monitors
[2023-11-14 08:08] VITALS: BMI 23.4
[2023-11-14] MEDS: Lidocaine 1% Pres-Free 5 ML VIAL (09:29)
[2023-11-14] MEDS: Duovisc Viscoelastic System EACH 1 EACH (09:32)
[2023-11-14] MEDS: Povidone-Iodine Ophth 30 ML BTL (09:32)
[2023-11-14] MEDS: Balanced Salt Soln.-PLUS 500 ML BAG OP (09:36)
[2023-11-14] MEDS: Tetracaine 0.5% 4 ML BTL OD (09:37)
[2023-11-14 09:42] VITALS: BP 140/63; PULSE 55; RESP 18; TEMP 36.4; O2SAT 96
--- NOTE | 2023-11-14 09:43 | W.PM.DSUDISC ---
Date of service: 11/14/23 Time of Service: 09:43 Discharge Plan Disposition Patient Disposition: Home Discharge Details Attending Provider: Howard Oquendo Primary Care Provider: Deepti Calderon Home Meds and New Rx's Prescriptions: No Action fluticasone propionate 50 mcg/actuation spray,suspension 2 spray NS BID Qty: 3 5RF albuterol sulfate [ProAir HFA] 90 mcg/actuation HFA aerosol inhaler 1 - 2 puff Inhalation Q4H PRN Qty: 3 12RF metoprolol succinate 100 mg tablet extended release 24 hr 200 mg PO DAILY Qty: 180 4RF celecoxib 200 mg capsule 200 mg PO DAILY PRN (Reason: pain) Qty: 30 2RF lisinopril-hydrochlorothiazide 20-25 mg tablet 1 tab PO DAILY Qty: 90 3RF clobetasol 0.05 % ointment 1 applic topical DAILY Qty: 60 5RF estradiol [Yuvafem] 10 mcg tablet 10 mcg vaginal .3 times weekly Qty: 36 4RF Discharge Instructions Stand Alone Forms: [facility] Post-Op CataractDhaval (DSU) Discharge Orders Discharge Orders: Discharge Order (Routine); Ordered 11/14/23 Ordered By: Howard Oquendo DS: Diagnosis Discharge Diagnosis (1) Cortical age-related cataract, right eye: Status: Resolved (2) Nuclear age-related cataract, right eye: Status: Resolved
--- NOTE | 2023-11-14 09:45 | ROE_ITS ---
Date of service: 11/14/23 Time of Service: 09:45 Operative Note Operative Note DATE OF PROCEDURE: 11/14/23 PRE-OP DIAGNOSIS: Nuclear/cortical cataract, right eye POST-OP DIAGNOSIS: same PROCEDURE: Cataract extraction using phacoemulsification with intraocular lens implant, right eye SURGEON: Howard Oquendo ANESTHESIA TYPE: Local By Surgeon and MAC Refer to Anesthesia Record ESTIMATED BLOOD LOSS: 0 PATHOLOGY: none sent COMPLICATIONS: None Patient was transported to: same day Patient's condition: stable Implants: Jose Enrique Clareon [id number] Indications: Progressive decreased vision due to cataract, right eye Procedure Description: CATARACT SURGERY OPERATIVE REPORT PREOPERATIVE DIAGNOSIS: Nuclear/cortical cataract, right eye POSTOPERATIVE DIAGNOSIS: Same OPERATION: Cataract extraction using phacoemulsification with posterior chamber intraocular lens implant, right eye. IOL: IOL Faculty Member/Model: Jose Enrique Clareon [id number] IOL Power: + 21.5 diopters IOL Serial Number: [id number] Optic Diameter: 6.0mm Haptic/Overall Diameter: 13.0mm PHACO INFO: Jose EnriqueCoherex Medicalurion Vision System with OZil and Active Fluidics Cumulative Dispersed Energy (CDE): 8.08 seconds SURGEON: Howard Oquendo MD, ZULEMA ANESTHESIA: Monitored Anesthesia Care (MAC), with local sub-tenon's anesthetic infiltration COMPLICATIONS: None SPECIMENS: None INDICATIONS FOR PROCEDURE: The patient is a 73-year-old lady with history of diminished visual acuity in both eyes secondary to the development of bilateral nuclear/cortical cataract. She is significantly symptomatic that she desires cataract surgery and attempt to improve and maximize her vision. She has already undergone cataract surgery in the left eye and is doing well postoperatively. She now presents for cataract surgery in the right eye. See office notes for detailed information. PROCEDURE: The correct surgical eye was identified and marked as the right eye and the pupil was dilated in the preoperative area using mydriatics and cycloplegics. The dilated pupil size was 5.5 mm. The patient elected to proceed without oral sedation. The patient was brought to the operating room where cardiopulmonary monitoring was instituted and surgical time-out was p erformed, confirming the correct operative eye and IOL power. Topical anesthesia was administered and ophthalmic povidone-iodine 5% was instilled into the conjunctival fornices. The mike-ocular area was prepped with Betadine 10% solution and draped in the usual sterile fashion for intraocular surgery, including an aperture drape. A Tegaderm transparent film dressing was cut in half and used to cover the lashes and lid margins. Care was taken to sequester the lashes and lid margins under the Tegaderm dressing. A lid speculum was placed between the lids of the operative eye and the Berkley-Jeniffer operating microscope was maneuvered into position. Carmen scissors were then used to make a conjunctival buttonhole approximately 6mm posterior to the limbus in the inferonasal quadrant. Blunt dissection was carried out to expose bare sclera, and a blunt-tipped sub-tenon?s anesthesia cannula was introduced and passed posteriorly along the globe where non- preserved plain lidocaine was injected into posterior sub-Tenon?s space. A sideport knife was used to make a paracentesis port. Intraocular phenylephrine/lidocaine was injected into the anterior chamber. The anterior chamber was then filled with viscoelastic. A keratome knife was used to construct a two--plane clear corneal tunnel extending 2.0mm into clear cornea. A flap was raised on the anterior capsule and capsulorhexis forceps were used to complete a continuous curvilinear capsulorhexis of 5.0 mm. Balanced salt solution was then used to perform cortical cleaving hydrodissection and nuclear hydrodelineation until the lens could be freely rotated within the capsular bag. The lens nucleus was then disassembled and removed within the capsular bag and iris plane using phacoemulsification. Residual cortical material was removed using the I/A handpiece. The posterior capsule was carefully polished to remove as much residual lens epithelial cells as safely possible. The capsular bag was then inflated and the anterior chamber deepened with cohesive viscoelastic. The lens implant described above was inserted into the capsular bag using the Jose Enrique Autonome Injector. A Kuglen hook was used to dial the IOL into position. Residual viscoelastic was then removed first from posterior to the IOL, then from the anterior chamber using the I/A handpiece. The lens implant was noted to center nicely within the capsular bag. The incisions were stromally hydrated, and the anterior chamber was reformed using BSS. Then 0.5cc of moxifloxacin 1.0mg/ml were injected into the capsular bag and anterior chamber. The inc isions were checked with a Weck spear and found to be secure. Several drops of ophthalmic povidone-iodine 5% were then applied to the eye followed by two drops of combination steroid/NSAID/antibiotic solution. The drapes were removed and a clear plastic protective eye shield was placed over the eye. The patient was then returned to [facility] Day Surgery in stable condition.
--- NOTE | 2023-11-14 10:01 | W.ANESPOSTOP ---
Postoperative Evaluation Date, Time and Location Date Performed: 11/14/23 Time Performed: 10:02 Patient Location: Day Surgery Unit Vital Signs Most Recent Imported Vital Signs: Most Recent Vital Signs Temp Pulse Resp BP Pulse Ox 36.4 C L 55 L 18 140/63 96 11/14/23 09:42 11/14/23 09:42 11/14/23 09:42 11/14/23 09:42 11/14/23 09:42 Pain Score Most Recent Pain Score: Most Recent Pain Score Pain Level 0 11/14/23 09:42 Assessment Mental Status: Awake (Alert & Oriented to Patient Baseline) Airway and Respiratory Function: Patent airway with normal (patient baseline) respiratory exam Cardiovascular Function: Hemodynamically Stable Hydration Status: Adequately Hydrated Nausea & Vomiting: No Nausea or Vomiting Pain: Pt. Denies Any Pain Peripheral Nerve Block: Patient did not receive a nerve block
== END 2023-11-14 10:08 | disposition home or self-care (01) ==
LOC: SUR 07:42
PROVIDERS: PCP Family Medicine; Visit Provider Ophthalmology
PROC: (CPT 66984; principal; 2023-11-14 09:00)
DX: H25.011 Cortical age-related cataract, right eye (principal); H25.11 Age-related nuclear cataract, right eye; I10 Essential (primary) hypertension; Z98.42 Cataract extraction status, left eye
CPT/HCPCS: 66984; 00123; V2632; J2003

== ENCOUNTER → 2024-01-12 04:11 | Outpatient (CLI) | payer MEDICARE, SELFPAY ==
--- NOTE | 2024-01-12 08:00 | DI.MAMMO_ITS ---
Exam(s) MAMMO SCREENING EXAM: MAMMO SCREENING CLINICAL HISTORY: screening,z12.39 TECHNIQUE: Bilateral full field digital CC and MLO mammographic images were obtained with 3D tomosyn thesis and utilizing computer aided detection (CAD). COMPARISON: Available for comparison. FINDINGS: Masses/Architectural Distortion: None seen. Microcalcifications: No suspicious pleomorphic-type are seen. Skin Thickening/Nipple Retraction: None. IMPRESSION: 1. No significant interval change with no specific features of malignancy noted. 2. Unless there is more urgent need, screening mammography is recommended, as per [place] [employer] guidelines. BI-RADS Category 1 - Negative Breast Density - Category B - Scattered areas of fibroglandular density Breast density category C or D implies that the patient has dense breast tissue. Dense breast tissue is very common and is not abnormal but dense breast tissue can make it harder to find cancer on a ma mmogram. Also, dense breast tissue may increase their breast cancer risk. This information about the result of the mammogram report was provided to the patient to raise their awareness. Use this report when you speak with the patient about their risks for breast cancer, which includes their family hist ory. At that time, you may recommend for more screening tests (Ultrasound or MRI) as they might be us eful based on their risk. A negative radiographic report should not delay biopsy if a dominant or clinically suspicious mass is present. Up to ten percent of cancers are not identified on mammography. A negative report may reinforce clinical impression. Adenosis and dense breasts may obscure an underlying neoplasm. False positive reports average 6 to 10%. Patient will receive a letter notifying them of these results.
== END ==
PROVIDERS: PCP Family Medicine; Visit Provider Family Medicine
DX: Z12.31 Encounter for screening mammogram for malignant neoplasm of breast (principal)
CPT/HCPCS: 77063; 77067

== ENCOUNTER 2024-05-20 08:59 | Outpatient (CLI) | payer MEDICARE, SELFPAY ==
--- NOTE | 2024-05-20 06:00 | DI.RAD_ITS ---
Exam(s) XR PAIN CLINIC CERVICAL SP 2V EXAM: XR PAIN CLINIC CERVICAL SP 2V CLINICAL HISTORY: DX: Cervical spondylosis. TECHNIQUE: Fluoroscopy was provided for the referring physician for guidance with performing pain cl inic injection procedure. COMPARISON: No exams were available for comparison FINDINGS: Please see procedure note for details. Fluoro time: 45.3 seconds RADIATION DOSE DELIVERED: lora Astorga=4.76 mGy
[2024-05-20 09:12] VITALS: BP 144/71; PULSE 55; RESP 20; TEMP 36.7; O2SAT 99
[2024-05-20] MEDS: Lactated Ringers 500 ML 80 ML IV (09:50)
[2024-05-20] MEDS: Midazolam 2 MG/2 ML VIAL IVP (09:50)
[2024-05-20] MEDS: fentaNYL 100 MCG/2 ML VIAL IVP (09:50)
[2024-05-20 10:30] VITALS: BP 133/64; PULSE 54; RESP 12; O2SAT 97
[2024-05-20] MEDS: Nerve Block Tray 1 EACH MC (10:32)
[2024-05-20] MEDS: Lidocaine 2% Multi-Dose 20 ML VIAL IJ (10:32)
[2024-05-20] MEDS: Dexamethasone Sod. Phos./Pres-Free 10 MG/ML VIAL IJ (10:33)
[2024-05-20] MEDS: Bupivacaine 0.5% Pres-Free 10 ML VIAL IJ (10:33)
--- NOTE | 2024-05-20 10:41 | PDOC.PAIN_ITS ---
Date of service: 05/20/24 Time of Service: 10:41 Pain Managment Procedure Note Procedure Note Procedure Note: PROCEDURE NOTE LEFT Cervical Radiofrequency Ablation Date of Service: May 20, 2024 Patient:? Sharri Lynn? Provider:? Matthew Lloyd DO, MPH Sharri Lynn [facility] Cervical Radiofrequency Ablation with the Avanos Machine.? Pre Operative Diagnosis: Cervical Spondylosis without Myelopathy Post Operative Diagnosis: Same Pre procedure pain; VAS= 7/10 Comments: Last RFA at these levels on 08/27/23 with >6 months of >50% pain relief. This pain has returned. PROCEDURE: 1. Left C3-C4 facet joint radiofrequency denervation 2. Left C4-C5 facet joint radiofrequency denervation 3. Left C5-C6 facet joint radiofrequency denervation Sharri?was interviewed and the medical record was reviewed.? There were no medical, pharmacologic, radiographic or other structural contraindications to attempting fluoroscopically guided LEFT Cervical Radiofrequency Ablation.?Risks and expected side effects as well as potential benefit of the procedure were reviewed with Sharri, and the patient's voiced concerns were addressed.? The printed consent form was signed.? Standard time-out procedure was performed. Sharri was brought to the procedure suite and placed on the exam table in a comfortable lateral recumbent position. A grounding pad was placed on the left abdomen. The place for the needle placement was obtained by manual palpation as well as radiographic confirmation. The sterile field was prepped by chlorhexidine and sterile drapes. Local anesthesia, both superficial and deep was provided by local infiltration of 3 ml Lidocaine 1%. Using fluoroscopic guidance, A 17g 50 mm radiofrequency introducer needle with a 2 mm active tip was placed overlying the left C3 cervical vertebra from the lateral approach and was advanced until bony contact was felt with the articular pillar. Attempted aspiration revealed no blood or cerebrospinal fluid. Motor testing was then performed with 2.0 volts and no upper extremity motor stimulation was observed. 1 ml of 2% Lidocaine was injected through the RF needle. A radiofrequency lesion of the Left medial branch of C3 was then performed at 80 degrees Celsius for 2 minutes and 30 seconds. There was no unusual discomfort expressed by Sharri. The needles were withdrawn without difficulty. Sharri was observed and was without hemodynamic, neurologic, or allergic reactions. Fluoroscopic images were digitally archived. The same procedure was repeated for Left C4, C5 and C6 medial branches. POST PROCEDURE EVALUATION: IMPRESSION: 1. Medication given is documented in the MAR 2. Follow up plan: Sharri to contact [facility] as needed. This procedure may be repeated if the patient achieves at least 50% improvement in pain and/or function for at least 6 months. 3. Estimated Blood Loss: <5ml 4. Fluoroscopy time: Documented in the EMR Follow up plans and appointments were discussed with Sharri. Post procedure instruction was given as documented in nursing documentation and having met discharge criteria, Sharri was discharged from the [facility]. COMMENTS: No apparent complications. Post-procedure pain: VAS= 0/10. I personally performed this entire procedure. MATTHEW LLOYD DO, MPH ABPM&R - Subspecialty board certification in Pain Medicine [facility] [facility]
== END 2024-05-20 09:00 | disposition home or self-care (01) ==
LOC: PC 08:59
PROVIDERS: PCP Family Medicine; Visit Provider Preventive Medicine Occupational Medicine
DX: M47.812 Spondylosis without myelopathy or radiculopathy, cervical region (principal); M54.2 Cervicalgia
CPT/HCPCS: 64633; 64634; 72040; J0665; J1100; J2003; J2250; J3010

== ENCOUNTER 2024-06-04 14:01 | Emergency (ER) | payer MEDICARE, SELFPAY ==
[2024-06-04 14:17] VITALS: BP 144/78; PULSE 73; RESP 12; TEMP 36.9; O2SAT 95
--- NOTE | 2024-06-04 14:30 | DI.US_ITS ---
Exam(s) US LOWER EXTREMITY VENOUS LT EXAM: US LOWER EXTREMITY VENOUS LT CLINICAL HISTORY: lef swelling pain hx of prior DVT. TECHNIQUE: Lower extremity venous ultrasound performed using grayscale, color-flow, and spectral Do ppler analysis. COMPARISON: No exams were available for comparison FINDINGS: Deep venous thrombosis beginning in the common femoral vein and extending through the veins through t he calf. The external iliac vein appears patent. No hematoma or Wick's cyst is seen. The saphenou s vein is free of thrombus. IMPRESSION: Extensive deep venous thrombosis from common femoral vein through the calf veins. DATA REPOSITORY:
--- NOTE | 2024-06-04 14:35 | ED.GENADUL_ITS ---
Discharge Plan Disposition Patient Disposition: Home Condition: Stable Discharge Details Clinical Impression: DVT of lower limb, acute Primary Care Provider: Deepti Calderon ED Provider: Howard Powell Home Meds and New Rx's Prescriptions: New Xarelto DVT-PE Treat 30d Start 15 mg (42)- 20 mg (9) tablets,dose pack See Rx Instructions .ROUTE .COMPLEX Qty: 51 0RF Rx Instructions: take one-15 mg tablet twice daily for 21 days, then one-20 mg tablet once daily; must take with meal/food No Action fluticasone propionate 50 mcg/actuation spray,suspension 2 spray NS BID Qty: 3 5RF albuterol sulfate [ProAir HFA] 90 mcg/actuation HFA aerosol inhaler 1 - 2 puff Inhalation Q4H PRN Qty: 3 12RF metoprolol succinate 100 mg tablet extended release 24 hr 200 mg PO DAILY Qty: 180 4RF celecoxib 200 mg capsule 200 mg PO DAILY PRN (Reason: pain) Qty: 30 2RF clobetasol 0.05 % ointment 1 applic topical DAILY Qty: 60 5RF estradiol [Yuvafem] 10 mcg tablet 10 mcg vaginal .3 times weekly Qty: 36 4RF gabapentin 300 mg capsule 300 mg PO TID MDD 3 PRN (Reason: neuropathy) Qty: 270 6RF tramadol 50 mg tablet 50 - 100 mg PO Q6H PRN Qty: 54 3RF lisinopril-hydrochlorothiazide 20-25 mg tablet 1 tab PO DAILY Qty: 90 3RF Discharge Instructions Instructions: Deep Vein Thrombosis (DVT) ED Additional Instructions: Please follow-up closely with your primary care physician. Discussed need for hematology follow-up. I have placed a hematology referral to [facility]. Please return to the emergency department for any worsening symptoms. Take medication as prescribed. HPI General Date/Time Provider Initiated Documentation: 06/04/24 14:02 . HPI Narrative: 74-year-old female history of prior DVT and PE was on Xarelto for a year, has not been on anticoagulation for some time, taken off of therapy by her primary care physician, presents with painful left swollen lower extremity over the last week, no chest pain or shortness of breath. Patient did have recent hospitalization for nerve ablation of her neck. This was within the last couple of weeks. Related Data Home Medications ?Medication ?Instructions ?Recorded ?Confirmed fluticasone propionate 50 2 spray NS BID ##3 02/25/22 06/04/24 mcg/actuation nasal spray,suspension clobetasol 0.05 % topical ointment 1 applic topical DAILY #60 grams 07/21/23 06/04/24 albuterol sulfate 90 mcg/actuation 1 - 2 puff inhalation Q4H PRN ##3 09/30/23 06/04/24 aerosol inhaler (ProAir HFA) celecoxib 200 mg capsule 200 mg PO DAILY PRN pain #30 caps 09/30/23 06/04/24 metoprolol succinate 100 mg 200 mg (2 x 100 mg) PO DAILY #180 09/30/23 06/04/24 tablet,extended release 24 hr tabs estradiol 10 mcg vaginal tablet 10 mcg vaginal .3 times weekly #36 10/17/23 06/04/24 (Yuvafem) tabs gabapentin 300 mg capsule 300 mg PO TID PRN neuropathy #270 03/08/24 06/04/24 tab-caps tramadol 50 mg tablet 50 - 100 mg (1 - 2 x 50 mg) PO Q6H 03/11/24 06/04/24 PRN #54 tabs lisinopril 20 1 tab PO DAILY #90 tabs 05/21/24 06/04/24 mg-hydrochlorothiazide 25 mg tablet rivaroxaban 15 mg (42)-20 mg (9) See Rx Instructions PO .COMPLEX 06/04/24 tablets in a starter pack (Xarelto #51 dose pk DVT-PE Treatment 30-Day Starter) Previous Rx's ?Medication ?Instructions ?Recorded fluticasone propionate 50 2 spray NS BID ##3 02/25/22 mcg/actuation nasal spray,suspension clobetasol 0.05 % topical ointment 1 applic topical DAILY #60 grams 07/21/23 albuterol sulfate 90 mcg/actuation 1 - 2 puff inhalation Q4H PRN ##3 09/30/23 aerosol inhaler (ProAir HFA) celecoxib 200 mg capsule 200 mg PO DAILY PRN pain #30 caps 09/30/23 metoprolol succinate 100 mg 200 mg (2 x 100 mg) PO DAILY #180 09/30/23 tablet,extended release 24 hr tabs estradiol 10 mcg vaginal tablet 10 mcg vaginal .3 times weekly #36 10/17/23 (Yuvafem) tabs gabapentin 300 mg capsule 300 mg PO TID PRN neuropathy #270 03/08/24 tab-caps tramadol 50 mg tablet 50 - 100 mg (1 - 2 x 50 mg) PO Q6H 03/11/24 PRN #54 tabs lisinopril 20 1 tab PO DAILY #90 tabs 05/21/24 mg-hydrochlorothiazide 25 mg tablet rivaroxaban 15 mg (42)-20 mg (9) See Rx Instructions PO .COMPLEX 06/04/24 tablets in a starter pack (Xarelto #51 dose pk DVT-PE Treatment 30-Day Starter) Allergies Allergy/AdvReac Type Severity Reaction Status Date / Time No Known Drug Allergies Allergy Other (See Verified 06/04/24 14:21 Comment) General Stated Complaint: Vascular JEFF: 3 Exam Narrative Exam Narrative: Alert oriented no acute distress Moist mucous membranes tongue secretions normal voice Lungs clear bilaterally speaking full sentences no tachypnea Moving all extremities without deficit no signs of trauma Unilateral edema to left lower extremity extending from foot into ankle and abreu, sensate, soft compartments, strong DP pulse mobile without deficit Course Vital Signs Vital signs: Vital Signs Temperature 36.9 C 06/04/24 14:17 Pulse 73 06/04/24 14:17 Respiratory Rate 12 06/04/24 14:17 Blood Pressure 144/78 H 06/04/24 14:17 Pulse Oximetry 95 06/04/24 14:17 Temperature 36.9 C 06/04/24 14:17 Temperature Source Oral 06/04/24 14:17 Pulse 73 06/04/24 14:17 Respiratory Rate 12 06/04/24 14:17 Blood Pressure 144/78 H 06/04/24 14:17 Blood Pressure Position Sitting 06/04/24 14:17 Pulse Oximetry 95 06/04/24 14:17 Oxygen Delivery Method Room Air 06/04/24 14:17 Oxygen Flow Rate 0 06/04/24 14:17 Pain Level 3 06/04/24 14:17 Medical Decision Making 74-year-old female history of prior DVT and PE was on Xarelto for a year, has not been on anticoagulation for some time, taken off of therapy by her primary care physician, presents with painful left swollen lower extremity over the last week, no chest pain or shortness of breath. Patient did have recent hospitalization for nerve ablation of her neck. This was within the last couple of weeks. Unilateral left lower extremity edema from foot to mid abreu, neurovascular exam of limb intact, no tachycardia tachypnea shortness of breath chest pain or hypoxia to suggest PE. High clinical suspicion for recurrent DVT. Will obtain ultrasound left lower extremity and will start patient on anticoagulation. Will encourage close follow-up with primary care physician and hematology. 15: 41 evidence of extensive deep venous thrombosis from common femoral vein through calf vein of left lower extremity. Discussed findings with patient. Patient endorses that she was on Xarelto in the past and that worked effectively at resolving her DVT. Will initiate Xarelto therapy. Encourage patient to follow-up closely next week with her primary care physician and discuss hematology follow-up I will place a hematology referral to [facility] to get the process started. Given strict return precautions for any worsening symptoms. Quality:SDOH Health Related Social Needs: Health related social needs inadequate housing Health related social needs details none PFSH All Active Problems (Updated 06/04/24 @ 15:42 by Howard Powell MD) DVT of lower limb, acute (Acute) Cataract (Chronic) Syncope and collapse (Acute) Cervical spondylosis without myelopathy (Acute) Cervical radiculopathy at C6 (Acute) Left thyroid nodule (Acute) Pulmonary nodule (Acute) Thyroid nodule greater than or equal to 1 cm in diameter incidentally noted on imaging study (Acute) DVT (deep venous thrombosis) (Chronic) 09/2021, right on Eliquis, at least 6 month course DNR (do not resuscitate) (Acute) Physician orders for life-sustaining treatment (POLST) form indicates patient wish for ci-[id number]-[id number] status (Acute) Vaginal atrophy (Acute) Tubular adenoma of colon (Chronic 10/13/14) Non-alcoholic fatty liver disease (Chronic) Joint pain (Chronic 06/16/12) Hyperlipidemia (Chronic) Essential hypertension (Chronic 12/03/13) Diverticulosis (Chronic 10/13/14) 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 Essential hypertension Hyperlipidemia Stroke Asthma Father , age 84 Essential hypertension Heart disease Hyperlipidemia Sister Essential hypertension Hyperlipidemia Asthma Maternal Grandfather No problems noted. Paternal Grandfather Heart disease Myocardial infarction Maternal Grandmother Lung cancer Paternal Grandmother Diabetes LATE ONSET Essential hypertension Heart disease Ovarian cancer STRONG FAMILY HISTORY Essential hypertension Arthritis Sister Essential hypertension Depression Hyperlipidemia Son No problems noted. Son No problems noted. Social History (Updated 10/09/23 @ 17:47 by Lisandra Dumont) Smoking/Tobacco Use Status: Former Tobacco Use Quit Date: 09/22/93 Second Hand Exposure: Yes Smoking risk assessment performed?: Yes Alcohol Intake: current Alcohol Intake frequency: 0-2 drinks per day Alcohol type: hard liquor Details: 2-3 daily Drug use: Daily Substance use type: marijuana Details: Last marijuana 11/13 1999 Adopted: No Caregiver/Support person: No Foster care: No Household members: family Housing: house Number of Children: 3 number of grandchildren: 2 Communication Needs: None Education Level: college Details: 4 years Do you need help understanding health information?: Rarely current occupation: retired social service coordinator Pets and animals: Yes Pets and animals: cat(s) and dog(s) Sexually active: No Current gender identity: female What is your relationship status?: living with partner How often do you talk on the phone with friends or family?: three or more times per week How often do you get together with friends or relatives?: once per week Do you belong to any clubs or organized social groups?: no Panel score (0-1 are the most socially isolated patients): 2 What type of physical activity do you participate in: walking Duration: 30-45 minutes/day Frequency: 5-6 times per week Elaina/Baptism: None Special elaina needs: No Agree to transfusion: Yes Seatbelt use: always Drive intox or ride w/intox farm truck driver: No Working smoke detector in home: Yes Carbon monox detector in home: Yes Firearms in home: Yes (of Course not) Firearms unloaded and locked: No Do you feel safe at home: Yes Do you feel safe in your relationship?: Yes Victim of physical abuse: No Victim of emotional abuse: No Victim of sexual abuse: No Would you like helpful sources: No
[2024-06-04 15:49] VITALS: BP 138/74; PULSE 82; RESP 16; O2SAT 96
== END 2024-06-04 15:50 | disposition home or self-care (01) ==
PROVIDERS: Emergency Provider Emergency Medicine; PCP Family Medicine
DX: I82.412 Acute embolism and thrombosis of left femoral vein (principal); I82.462 Acute embolism and thrombosis of left calf muscular vein; I10 Essential (primary) hypertension; E78.5 Hyperlipidemia, unspecified; Z87.891 Personal history of nicotine dependence
CPT/HCPCS: 99284; 93971; 99283

== ENCOUNTER 2024-10-19 15:19 | Outpatient (REF) | payer MEDICARE, SELFPAY ==
[2024-10-19 21:50] LABS: Bilirubin Negative (Negative); Blood Negative (Negative); Clarity Clear (Clear); Glucose Negative (Negative); Ketones Negative (Negative); Leukocyte Esterase Small (Negative); Nitrite Negative (Negative); Specific Gravity 1.025 (1.005-1.025); Urobilinogen 0.2 mg/dL (Up to 0.2); pH 5.5 (5-8)
[2024-10-19 21:59] LABS: Bacteria Negative HPF (Negative); C & S Indicated? No/Sq. Contamination; Casts Negative LPF (Negative); Crystals Negative HPF (Negative); Epithelial Cells Many HPF (Negative); Mucus Negative (Negative); RBC Negative HPF (0-2)
== END 2024-10-19 15:20 | disposition home or self-care (01) ==
LOC: LBN 15:19
PROVIDERS: PCP Family Medicine; Visit Provider Family Medicine
DX: R32 Unspecified urinary incontinence (principal)
CPT/HCPCS: 81003; 81015

== ENCOUNTER 2024-11-08 01:32 | Outpatient (CLI) | payer MEDICARE, SELFPAY ==
--- NOTE | 2024-11-08 06:30 | DI.MRI_ITS ---
Exam(s) MR LUMBAR SPINE WO EXAM: MR LUMBAR SPINE WO CLINICAL HISTORY: Low back pain and left radiculopathy,bilat sciatica,m54.41,m54.42. TECHNIQUE: Multiplanar multisequence MRI of the Lumbar spine was performed. COMPARISON: MR MRI - LUMBAR SPINE W/WO CONT from 11/09/[address] CHEST PE CTA from 09/25/2021 FINDINGS: Bones: The last intervertebral disc space is designated the L5/S1 level for the numbering purpose of this examination. The vertebral body heights are well maintained. Alignment is satisfactory. There is a round T2 hyperintense lesions seen in the L2 vertebral body. It is hypointense on the T1 weight ed images. Cord: The conus tip ends at the L1 level. It is of normal size and signal intensity. T12-L1: There is a mild diffuse disc bulge. No central spinal canal or neural foraminal stenosis. L1-2: There is a diffuse disc bulge. There are degenerative changes of the facets. There is mild na rrowing of the central spinal canal.There is mild narrowing of the neural foramen bilaterally. L2-3: There is a mild diffuse disc bulge. There are hypertrophic changes of the facets and ligamentu m flavum. Moderate central spinal canal stenosis is seen. There is no significant right neural fora yulisa stenosis. There is mild left neural foraminal stenosis. L3-4: There is a mild diffuse disc bulge. There are degenerative changes of the facets. There is mi ld narrowing of the central spinal canal. Significant neural foraminal stenosis is present. L4-5: There is disc space narrowing and mild endplate degenerative signal changes. Mild degenerative changes of the facets are seen. No central spinal canal or neural foraminal stenosis. L5-S1: No disc herniations or bulges are present. No central spinal canal or neural foraminal stenosi s. Soft tissues: The visualized SI joints and sacrum are well maintained. The paraspinal soft tissues ar e unremarkable. Visualized abdominal organs: Diverticulosis in the colon is present. IMPRESSION: 1. Multilevel degenerative changes are seen in the lumbar spine. The findings are most marked at L2- L3 where there is moderate central spinal canal stenosis and left neural foraminal stenosis. Finding s are less prominent at L1-L2 and L3-L4 as described above. 2. Lesion in the L2 vertebral body. It may represent an atypical hemangioma. Neoplastic process can not be excluded. Postcontrast MRI should be considered for further evaluation. Unexpected findings DATA REPOSITORY:
== END 2024-11-08 01:52 ==
LOC: DI 01:33
PROVIDERS: PCP Family Medicine; Visit Provider Family Medicine
DX: M48.062 Spinal stenosis, lumbar region with neurogenic claudication (principal)
CPT/HCPCS: 72148

== ENCOUNTER 2024-11-26 00:16 | Outpatient (CLI) | payer MEDICARE, SELFPAY ==
--- NOTE | 2024-11-26 08:00 | DI.MRI_ITS ---
Exam(s) MR LUMBAR SPINE W EXAM: MR LUMBAR SPINE W CLINICAL HISTORY: hemangioma vs mets,F/U ABNL MRI,R93.7. TECHNIQUE: Multiplanar multisequence MRI of the Lumbar spine was performed. Study was performed with IV contrast, specifically 14 mL intravenous Dotarem. COMPARISON: CR LUMBAR SPINE COMPLETE from 10/24/2009 MR MRI - LUMBAR SPINE W/WO CONT from 04/25/2011 MR MRI - LUMBAR SPINE W/WO CONT from 11/09/[address] CHEST PE CTA from 09/25/[address] CHEST WO from 01/25/2022 MR MR LUMBAR SPINE WO from 11/08/2024 FINDINGS: For details of discs see report of MRI performed 11/08/2024. OSSEOUS: The previously described round lesion in the right-side of the L2 vertebral body is again no josefina. This lesion is hypointense on T1 images and T2 hyperintense. This well-defined eccentric nonexpansile lesion does exhibit internal enhancement following contrast injection. There is no surrounding marrow edema on the recent STIR images. Review of lumbar spine MRI October 2012 reveals the presence of what appears to be hemangioma in the L2 vertebra at that time, however, it appears to have been in the left side of the vertebral artery at that time and unchanged from MRI scan of 2010 There is no height loss of the L2 vertebral body although there is a small Schmorl's node invaginatio n in the inferior endplate of this vertebral body Review of plain films of 2009 does not reveal obvious abnormality in the L2 vertebral body. IMPRESSION: 1. Findings-signal characteristics in the L2 vertebral body nonexpansile lesion are not that of a typ ical hemangioma. Given the T1 hyperintensity and postcontrast enhancement possibility of this being a neoplastic/metastatic lesion is a consideration. However, I do feel that there are some internal p unctate foci from their further stool possibly that this is an atypical hemangioma. 2. There is a next step I recommend thin slice CT scanning through this region. This will help deter mine if there is the typical ???spoke wheel??? pattern of an hemangioma. Another possibility would b e performing whole body nuclear bone scan. 3. DATA REPOSITORY:
[2024-11-26] MEDS: Gadoterate meglumine 20 ML SYRINGE 14 ML IVP (14:42)
== END 2024-11-26 00:36 ==
LOC: DI 00:16
PROVIDERS: PCP Family Medicine; Visit Provider Family Medicine
DX: R93.7 Abnormal findings on diagnostic imaging of other parts of musculoskeletal system (principal)
CPT/HCPCS: 72149

== ENCOUNTER 2024-11-30 14:31 | Outpatient (CLI) | payer MEDICARE, SELFPAY ==
[2024-11-30 14:06] LABS: HCT 40.5 % (36.0-46.0); HGB 13.7 g/dL (11.2-15.7); MCH 34.1 pg (27.0-33.0); MCHC 33.8 % (32.0-36.0); MCV 101 fL (80-95); MPV 10.2 fL (8.0-11.0); Platelet Count 214 10^3/uL (130-400); RBC 4.02 10^6/uL (3.93-5.22); RDW 12.2 % (11.7-14.6); RDW-SD 45.9 fL
[2024-11-30 15:24] LABS: ALT 24 U/L (14-59); AST 20 U/L (15-37); Albumin 4.2 g/dL (3.4-5.0); Alkaline Phosphatase 77 U/L (46-116); Anion Gap 10.3 mmol/L (3-11); BUN 23 mg/dL (7-18); Bilirubin, Total 0.7 mg/dL (0.2-1.0); CO2 28.7 mmol/L (21.0-32.0); CREATININE 1.2 mg/dL (0.55-1.02); Calcium 9.6 mg/dL (8.5-10.1); Chloride 105 mmol/L (98-107); Estimated GFR 47.21 (mL/min/1.73m2); Glucose 103 mg/dL (74-106); Potassium 4.2 mmol/L (3.5-5.1); Sodium 144 mmol/L (136-145); Total Protein 6.8 g/dL (6.4-8.2); Vitamin B12 165 pg/mL (193-986)
[2024-12-01 00:26] LABS: Hepatitis C Ab w Rflx HCV PCR Negative (Negative)
[2024-12-01 13:31] LABS: Albumin 67.4 % (55.8-66.1); Albumin g/dL 4.4 g/dL (3.6-5.2); Total Protein 6.5 g/dL (6.3-8.2)
== END 2024-11-30 14:32 | disposition home or self-care (01) ==
LOC: LBO 14:31
PROVIDERS: PCP Family Medicine; Visit Provider Family Medicine
DX: I10 Essential (primary) hypertension (principal); R93.7 Abnormal findings on diagnostic imaging of other parts of musculoskeletal system; E53.8 Deficiency of other specified B group vitamins; Z79.01 Long term (current) use of anticoagulants; Z11.59 Encounter for screening for other viral diseases
CPT/HCPCS: 36415; 80053; 85027; 86803; 82607; 84165

== ENCOUNTER 2024-12-01 03:44 | Outpatient (CLI) | payer MEDICARE, SELFPAY ==
--- NOTE | 2024-12-01 06:45 | DI.NM_ITS ---
Exam(s) NM BONE SCAN WHOLE BODY GRP EXAM: NM BONE SCAN WHOLE BODY GRP CLINICAL HISTORY: L2 - atypical mass,F/U ABNL MRI,R93.7. TECHNIQUE: Injected Dose: 25 mCi Tc-99m MDP Delayed Images: 2-3 hours. COMPARISON: No exams were available for comparison FINDINGS: First leak, there is abnormal focal uptake at the level the greater trochanter of the left hip. Appa rently this patient fell and injured her left hip approximately 3 months ago. Therefore this may be a fracture site. Recommend additional imaging of the left hip. There are no prior left hip images i n our PACS. There is symmetrical increased uptake seen in both wrists at the level the 1st carpometacarpal joints , most probably degenerative. There findings in the spinal column which appear probably degenerative. However, there is a tiny foc us of increased uptake on the right side of the mid lumbar spine which appears to be in the upper lef t side of L3 vertebral body. Probably degenerative. There does not appear to be obvious abnormal up take in the L2 vertebral body at the site of recently described lesion. Therefore this is probably a benign lesion such as an hemangioma. IMPRESSION: 1. Focal increased uptake in the left hip greater trochanter which may be recent fracture site given the recent trauma history here. Recommend further left hip imaging. 2. Non impressive uptake in the L2 vertebral body site of concern on recent MRI. However, given the non typical for hemangioma signal in this lesion on the MRI plus the fact that this lesion has grown since prior M RI of 2012, I recommend CT scan through this region to add specificity. If the CT sca n reveals the typical spoke wheel pattern of a benign intraosseous hemangioma, then further follow-up will be conservative. In addition, CT scan can also be performed through the left hip of concern at the same time. DATA REPOSITORY:
== END 2024-12-01 04:04 ==
LOC: DI 03:44
PROVIDERS: PCP Family Medicine; Visit Provider Family Medicine
DX: R93.7 Abnormal findings on diagnostic imaging of other parts of musculoskeletal system (principal)
CPT/HCPCS: 78306

== ENCOUNTER 2024-12-03 09:11 | Outpatient (CLI) | payer MEDICARE, SELFPAY ==
--- NOTE | 2024-12-03 11:21 | DI.RAD_ITS ---
Exam(s) XR HIP LT COMPLETE AP PELVIS EXAM: XR HIP LT COMPLETE AP PELVIS CLINICAL HISTORY: abnl bone scan, LT HIP PAIN, M25.552. TECHNIQUE: 2D digital imaging was performed of the left hip. Two views were obtained. AP pelvis an d lateral left hip views were obtained. COMPARISON: CR RIGHT HIP COMPLETE from 05/08/2012 CT,NM NM BONE SCAN WHOLE BODY GRP from 12/01/2024 FINDINGS: BONES: There is longitudinal sclerotic area greater trochanter corresponding to the increased uptake seen on the bone scan. This may represent a healing fracture. There is no periosteal reaction. No lytic or sclerotic lesions are seen. JOINTS: No dislocation present. The hip joints are well maintained as are the sacroiliac joints and s ymphysis pubis. SOFT TISSUE: Normal. IMPRESSION: Subtle area of increased sclerosis in the greater trochanter of the left hip. This may represent a h ealing fracture. If further imaging is warranted, an MRI is recommended. DATA REPOSITORY: RADIATION DOSE DELIVERED:
== END 2024-12-03 09:31 ==
LOC: DI 09:11
PROVIDERS: PCP Family Medicine; Visit Provider Family Medicine
DX: M25.552 Pain in left hip (principal)
CPT/HCPCS: 73502

== ENCOUNTER 2025-01-26 13:50 | Outpatient (CLI) | payer MEDICARE, SELFPAY ==
--- NOTE | 2025-01-26 06:00 | DI.RAD_ITS ---
Exam(s) XR PAIN CLINIC FLUORO JOINT IN EXAM: XR PAIN CLINIC FLUORO JOINT IN CLINICAL HISTORY: DX: Ischiogluteal bursitis. TECHNIQUE: Fluoroscopy was provided for the referring physician for guidance with performing pain cl inic injection procedure. COMPARISON: No exams were available for comparison FINDINGS: Please see procedure note for details. Fluoro time: 17.2 seconds RADIATION DOSE DELIVERED: Rizwanr=3.34 mGy
[2025-01-26 14:22] VITALS: BP 145/75; PULSE 67; RESP 20; TEMP 36.7; O2SAT 2
[2025-01-26 14:59] VITALS: PULSE 58; O2SAT 97
[2025-01-26 15:00] VITALS: PULSE 54; O2SAT 96
[2025-01-26 15:10] VITALS: PULSE 54; O2SAT 94
--- NOTE | 2025-01-26 15:18 | PDOC.PAIN ---
Date of service: 01/26/25 Time of Service: 15:18 Pain Managment Procedure Note Procedure Note Procedure Note: PROCEDURE NOTE LEFT ISCHIOGLUTEAL BURSA INJECTION Date of Service: January 26, 2025 Patient:Sharri Galindo? Provider:? Matthew Reynolds DO, MPH Sharri Lynn has been referred to the [facility] for LEFT ischiogluteal bursa injection. 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 Carloswas interviewed and the medical record was reviewed.? There were no medical, pharmacologic, radiographic or other structural contraindications to attempting fluoroscopically guided LEFT ischiogluteal bursa injection.? Risks and expected side effects as well as potential benefit of the procedure were reviewed with Sharri, and voiced concerns were addressed.? The printed consent form was signed.? Standard time-out procedure was performed. Sharri was placed in the prone position on the fluoroscopy table with pulse oximeter applied. The skin entry point for approaching superior aspect of the lateral LEFT lower buttock was identified under the most advantageous fluoroscopic view and marked. Following thorough Chlorhexadine preparation of the skin and draping, 1% lidocaine infiltration of the skin entry point and subcutaneous tissues was accomplished. Next a 22 gauge 3.5 inch spinal needle was placed under fluoroscopic guidance into the LEFT Ischiogluteal bursa. Intra-bursal placement was confirmed by a clear bursagram resulting from the injection of 1 ml Omnipaque 240. 3 ml of 1 %Lidocaine and 40 mg Depo-Medrol was injected intra-articularily with an initial reproduction of a significant component of the usual pain. 1 ml of 1% Lidocaine was then flushed through the needle and the needle was then removed without difficulty. (49 ml of Omnipaque was wasted). There was no unusual discomfort expressed by Sharri. The needle was withdrawn without difficulty. Sharri was observed and was without hemodynamic, neurologic, or allergic reactions.? Fluoroscopic images were digitally archived. Sharri's vital signs were stable throughout the procedure and were as recorded in the docflowsheet by the nursing staff. If given, dosages of intravenous drugs for anxiolysis and analgesia were documented in MAR. Follow up plans and appointments were discussed with Sharri. Post procedure instruction was given as documented in nursing documentation and having met discharge criteria, [facility] COMMENTS: No apparent complications. Post-procedure pain: VAS= 0/10. Sharri to contact [facility] as needed. If at least 50% improvement in pain and/or function for at least 3 months is achieved, this procedure can be repeated. I personally completed the entire procedure. MATTHEW REYNOLDS DO, MPH ABPM&R - Subspecialty board certification in Pain Medicine [facility] Coding Conscious Sedation used for procedure: No CPT Codes: Inj,Bursa/Tendon Major (not SI); Ischial Bursa - 18441 ([id number] ~G) left Fluoroscopic guidance (non spine inj.) - 90965 ([id number] ~G) Additional Codes: Date of Service (85433) Date of service: 01/26/25
[2025-01-26] MEDS: Dexamethasone Sod. Phos./Pres-Free 10 MG/ML VIAL IJ (15:20)
[2025-01-26] MEDS: Nerve Block Tray 1 EACH MC (15:20)
[2025-01-26] MEDS: Omnipaque 240 MG/ML 50 ML BTL IJ (15:20)
[2025-01-26] MEDS: methylPREDNISolone ACETATE 40 MG/ML VIAL IJ (15:21)
[2025-01-26] MEDS: Lidocaine 2% Pres-Free 5 ML VIAL IJ (15:21)
[2025-01-26] MEDS: Bupivacaine 0.5% Pres-Free 10 ML VIAL IJ (15:22)
--- NOTE | 2025-01-26 15:25 | PDOC.PAIN_ITS ---
Date of service: 01/26/25 Time of Service: 15:25 US Guided Injections Type of Ultrasound Guided Injection: Left Trochanteric Bursa Injection Pre-Procedural Evaluation Tender to palpation over the left trochanteric bursa Referral Patient has been referred to the [facility] for Left Trochanteric Bursa Injection for a chief complaint of Left lateral hip pain Pre-Procedural Pain Score Pre-procedural pain score: 7/10 Reason for Exam Pain Patient Interview Patient was interviewed and medical record reviewed: Yes There were no contraindications to performing an US guided procedure. Risks,expected side effects, potential benefits were reviewed. The patient consent form was signed and witnessed. Standard time out procedure was performed. Patient Safety No noticeable skin issues at the injection sites Procedure Description No sedation given for procedure Patient was placed in the right lateral recumbent position and the following Pulse Ox applied. Pre-Procedure ultrasound scanning performed using a Linear 9 MHz probe Site Preparation Chloroprep Local Anesthesia Skin and subcutaneous tissues anesthetized with: 2 mL of Lidocaine 2%. A 21 G 3.5 Pajunk ultrasound needle was placed under live US guidance using an in-plane approach to the target area. After visualization of the needle tip at the target area Dexamethasone 10mg and Lidocaine 2% were used. Total of Injectate/Medication Note: 1 cc of Dexamethasone and 4 cc of 2% Lidocaine Negative aspiration for blood. [place] were removed without difficulty. Ultrasound images were captured and stored. Patient Mental Status Patient was alert and awake during procedure Vital Signs Vital signs were stable throughout the procedure and recorded by nursing. Follow Up/Discharge Follow up plans and appointments were discussed with patient. Post procedure instruction was given as documented in nursing documentation. Discharge criteria met and patient discharged from [facility] Center: Yes Post Procedure Pain Post Procedure Pain: 0/10 Patient tolerated procedure well Procedure Outcome: Successful Non US Guided Injections Procedure Description Patient was placed in the right lateral recumbent position Post Procedure Pain Post Procedure Pain: 0/10 Coding Conscious Sedation used for procedure: No CPT Codes: Inj,Bursa/Tendon w/US Large; Iliopsoas Bursa Injection w/US - ([id number] ~G) left Additional Codes: Visualization of the needle tip - Ultrasound images captured/stored: Yes ([id number]) Date of Service (90117) Date of service: 01/26/25
== END 2025-01-26 13:51 | disposition home or self-care (01) ==
LOC: PC 13:51
PROVIDERS: PCP Family Medicine; Visit Provider Preventive Medicine Occupational Medicine
DX: M70.72 Other bursitis of hip, left hip (principal); M25.552 Pain in left hip
CPT/HCPCS: 20610; 20611; 76942; 77002; J0665; J1010; J1100; Q9967

== ENCOUNTER 2025-02-16 12:05 | Outpatient (CLI) | payer MEDICARE, SELFPAY ==
[2025-02-16] VITALS (9 sets, daily range): BP systolic 114–148; BP diastolic 57–61; PULSE 49–61; RESP 11–20; TEMP 36.7; O2SAT 93–100
--- NOTE | 2025-02-16 06:00 | DI.RAD_ITS ---
Exam(s) XR PAIN CLINIC CERVICAL SP 2V EXAM: XR PAIN CLINIC CERVICAL SP 2V CLINICAL HISTORY: Dx: Cervical Spondylosis. TECHNIQUE: Fluoroscopy was provided for the referring physician for guidance with performing pain cl inic injection procedure. COMPARISON: No exams were available for comparison FINDINGS: Please see procedure note for details. Fluoro time: 46.4 seconds RADIATION DOSE DELIVERED: lora Astorga=7.02 mGy
[2025-02-16] MEDS: fentaNYL 100 MCG/2 ML VIAL IVP ×2 (13:29→13:36)
[2025-02-16] MEDS: Midazolam 2 MG/2 ML VIAL IVP (13:29)
[2025-02-16] MEDS: Lactated Ringers 500 ML 80 ML IV (13:39)
[2025-02-16] MEDS: Nerve Block Tray 1 EACH MC (13:49)
[2025-02-16] MEDS: Dexamethasone Sod. Phos./Pres-Free 10 MG/ML VIAL IJ (14:12)
[2025-02-16] MEDS: Bupivacaine 0.5% Pres-Free 10 ML VIAL IJ (14:14)
[2025-02-16] MEDS: Lidocaine 2% Pres-Free 5 ML VIAL IJ (14:14)
--- NOTE | 2025-02-16 15:36 | PDOC.PAIN ---
Date of service: 02/16/25 Time of Service: 15:36 Pain Managment Procedure Note Procedure Note Procedure Note: PROCEDURE NOTE LEFT Cervical Radiofrequency Ablation Date of Service: February 16, 2025 Patient:? Sharri Lynn? Provider:? Matthew Lloyd DO, MPH Sharri Lynn has [facility] LEFT Cervical Radiofrequency Ablation with the [employer] Machine.? Pre Operative Diagnosis: Cervical Spondylosis without Myelopathy ICD-10 M47.812 Post Operative Diagnosis: Same Pre procedure pain; VAS= 7/10 Comments: She has had this procedure in the past with >50% pain relief for >7 months. Her pain has returned. PROCEDURE: 1. Left C3-C4 facet joint radiofrequency denervation 2. Left C4-C5 facet joint radiofrequency denervation 3. Left C5-C6 facet joint radiofrequency denervation Sharri?was interviewed and the medical record was reviewed.? There were no medical, pharmacologic, radiographic or other structural contraindications to attempting fluoroscopically guided LEFT Cervical Radiofrequency Ablation.?Risks and expected side effects as well as potential benefit of the procedure were reviewed with Sharri, and the patient's voiced concerns were addressed.? The printed consent form was signed.? Standard time-out procedure was performed. Sharri was brought to the procedure suite and placed on the exam table in a comfortable lateral recumbent position. A grounding pad was placed on the left abdomen. The place for the needle placement was obtained by manual palpation as well as radiographic confirmation. The sterile field was prepped by chlorhexidine and sterile drapes. Local anesthesia, both superficial and deep was provided by local infiltration of 3 ml Lidocaine 1%. Using fluoroscopic guidance, A 17g 50 mm radiofrequency introducer needle with a 2 mm active tip was placed overlying the left C3 cervical vertebra from the lateral approach and was advanced until bony contact was felt with the articular pillar. Attempted aspiration revealed no blood or cerebrospinal fluid. Motor testing was then performed with 2.0 volts and no upper extremity motor stimulation was observed. 1 ml of 2% Lidocaine was injected through the RF needle. A radiofrequency lesion of the Left medial branch of C3 was then performed at 80 degrees Celsius for 2 minutes and 30 seconds. Next, I injected 1/4 cc of Dexamethasone (10 mg/cc) followed by 1 cc of 0.5% Bupivacaine at each segmental sensory nerve. There was no unusual discomfort expressed by Sharri. The needles were withdrawn without difficulty. Sharri was observed and was without hemodynamic, neurologic, or allergic reactions. Fluoroscopic images were digitally archived. The same procedure was repeated for Left C4, C5 and C6 medial branches. POST PROCEDURE EVALUATION: IMPRESSION: 1. Medication given is documented in the MAR 2. Follow up plan: Sharri to contact [facility] as needed. This procedure may be repeated if the patient achieves at least 50% improvement in pain and/or function for at least 6 months. 3. Estimated Blood Loss: <5ml 4. Fluoroscopy time: Documented in the EMR Follow up plans and appointments were discussed with Sharri. Post procedure instruction was given as documented in nursing documentation and having met discharge criteria, Sharri was discharged from the [facility]. This advanced procedure uses cooled radiofrequency energy to safely target the sensory nerves responsible for sending pain signals.1 A radiofrequency generator transmits a small current of Radiofrequency energy through an insulated electrode, or probe, placed within tissue. Ionic heating, produced by the friction of charged molecules, thermally deactivates the nerves responsible for sending pain signals to the brain. Radiofrequency energy heats and cools the tissue at the site of pain. Unlike other Radiofrequency procedures, Coolief circulates water through the device while heating nervous tissue to create a larger treatment area, increasing the opportunity to help with pain. This combination targets the pain-transmitting nerves without excessive heating, leading to pain relief. COMMENTS: No apparent complications. Post-procedure pain: VAS= 3/10. I personally performed this entire procedure. MATTHEW LLOYD DO, MPH [employer] - Subspecialty board certification in Pain Medicine [facility] Coding Conscious Sedation used for procedure: Yes CPT Codes: Single Facet Joint, Cervical/Thoracic cool - 08239P ([id number]~G) Single Facet Joint, Cervical/Thoracic cool each add'l - 33548B ([id number]~G) LT - LEFT SIDE 2 additonal levels Additional Codes: Date of Service (69025) Date of service: 02/16/25
== END 2025-02-16 12:06 | disposition home or self-care (01) ==
LOC: PC 12:05
PROVIDERS: PCP Family Medicine; Visit Provider Preventive Medicine Occupational Medicine
DX: M47.812 Spondylosis without myelopathy or radiculopathy, cervical region (principal); M54.2 Cervicalgia
CPT/HCPCS: 64633; 64634; 72040; J0665; J1100; J2250; J3010

== ENCOUNTER → 2025-07-21 03:57 | Outpatient (CLI) | payer MEDICARE, SELFPAY ==
--- NOTE | 2025-07-21 07:45 | DI.RAD_ITS ---
Exam(s) XR CERVICAL SPINE COMP 4-5V EXAM: XR CERVICAL SPINE COMP 4-5V CLINICAL HISTORY: neck pain,cervical spondylosis,cervical radiculopathy c6,m47.812. TECHNIQUE: 2D digital imaging was performed. COMPARISON: CR XR CERVICAL SPINE COMP 4-5V from 02/13/2021 FINDINGS: Six views No evidence of fracture, listhesis, nor offset of the spinal laminar line. There is some disc space narrowing at C4-5, C5-6, and C6-7 levels which is similar to previous. There is multilevel facet arthropathy most prominent on left side at mid cervical level, similar to previous. No cervical ribs. No osseous lesions. IMPRESSION: Chronic degenerative disc disease. Minimal change compared to 202 images. DATA REPOSITORY: RADIATION DOSE DELIVERED:
== END ==
LOC: DI 03:57
PROVIDERS: PCP Family Medicine; Visit Provider Family Medicine
DX: M54.12 Radiculopathy, cervical region (principal); M47.812 Spondylosis without myelopathy or radiculopathy, cervical region
CPT/HCPCS: 72050

== ENCOUNTER → 2025-08-03 01:23 | Outpatient (CLI) | payer MEDICARE, SELFPAY ==
--- NOTE | 2025-08-03 07:00 | DI.MRI_ITS ---
Exam(s) MR CERVICAL SPINE WO EXAM: MR CERVICAL SPINE WO CLINICAL HISTORY: severe neck pain,CERVICAL STENOSIS OF SPINE,CERVICAL RADICULOPATHY TECHNIQUE: Multiplanar multisequence MRI of the cervical spine was performed without intravenous contrast. COMPARISON: MR MR CERVICAL SPINE WO from 09/27/2022 CR XR CERVICAL SPINE COMP 4-5V from 07/21/2025 FINDINGS: CERVICOMEDULLARY JUNCTION: Intact with no evidence of cerebellar tonsillar ectopia. No obvious abnormality of the odontoid process. No evidence of Chiari 1 malformation. Cervical curvature is maintained. CERVICAL SPINAL CORD: There is no abnormal signal in the cervical spinal cord and no evidence of focal cord atrophy nor focal cord swelling. OSSEOUS:There are no cervical fractures evident. No significant osseous lesions in the cervical vertebrae. INDIVIDUAL LEVELS: C2-3: Normal disc height. No disc herniation or central canal stenosis. There is moderate bilateral facet arthropathy, more prominent on the left side, similar to previous study. No Luschka joint osteophytes. Mild bilateral foraminal stenosis C3-4: Normal disc height. No significant disc herniation nor central canal stenosis. There is advanced facet arthrosis on the left side and only mild facet arthropathy on the right side.There is mild-moderate foraminal stenosis both sides. C4-5: Mildly decreased disc height and anterior osseous lipping again noted. Posteriorly there is relatively symmetrical annular bulging noted which flattens the anterior thecal sac but not the spinal cord. AP measurement of the canal at this level is 10 mm.There is no significant facet arthropathy on the right side. On the left side there is mild facet arthropathy. Small bilateral Luschka joint osteophytes are noted, similar to previous. Mild bilateral foraminal narrowing. C5-6: Moderate disc space height loss again noted and anterior osseous lipping again evident. Posteriorly there are bilateral Luschka joint osteophytes again noted. There is a small posterolateral right disc-osteophyte complex, similar to previous. There is mild flattening of the anterior thecal sac unchanged from previous. No flattening of the cervical cord. AP measurement of the canal at this level is 9 mm. Mild facet arthropathy. Moderate left-sided foraminal stenosis related to disc-osteophyte complex. Lesser amount of foraminal stenosis on the right side. Findings are similar to the previous 2022 study at this level. C6-7: Chronic advanced disc space narrowing again noted anterior osseous lipping. Posteriorly there is mild symmetrical annular bulging. No distinct focal disc herniation. Central canal dimensions are lower normal. No facet arthropathy evident at this level but there is right-sided Luschka joint os teophyte complex. No foraminal stenosis evident on either side at this level. C7-T1: Normal disc height. Mild anterolisthesis of C7 upon T1 related to bilateral facet arthropathy. However, there is no central canal stenosis evident. Also no significant foraminal stenosis. IMPRESSION: 1. Multilevel chronic degenerative disc disease in the mid-lower levels but without a dominant disc herniation nor significant central spinal canal stenosis. 2. There is multilevel mild-moderate foraminal narrowing, more so left-sided and right-sided, similar to the prior MRI scan September 2022. 3. Findings overall similar to the findings of the MRI scan of 09/27/2022. DATA REPOSITORY:
== END ==
LOC: DI 01:23
PROVIDERS: PCP Family Medicine; Visit Provider Family Medicine
DX: M48.02 Spinal stenosis, cervical region (principal); M47.22 Other spondylosis with radiculopathy, cervical region
CPT/HCPCS: 72141